=== PATIENT | male | born 1945 | race Caucasian/White ===

== ENCOUNTER → 2016-09-03 | Day surgery (SDC) | payer OTHER ==
[~2016-09-03] MED LIST: ACETAMINOPHEN 1000 MG/100 ML VIAL IV ONE; ATEN50TA PO; ATOR10TA15 PO; AUTOKIT7; BUPIVACAINE/EPINEPHRINE 0.25% 50 ML VIAL ONE; LACTATED RINGER'S 1000 ML INJ 1,000 ML ONE; LIDOCAINE 1%/EPINEPHrine 1:100,000 SOLN 20 ML VIAL ONE; LISI10TA3 PO; LOTR15T TOPICAL; LUMBAR BACK BRA1 MIS; MIDAZOLAM HCL 2 MG/2 ML VIAL ONE; NAPR500T PO; ONDANSETRON HCL 4 MG/2 ML VIAL IV PUSH ONE; PROPOFOL 100 MG/10 ML INJ IV ONE; PROT40TA PO; TAMS5CAP PO; TYLE325T PO; ceFAZolin INJ 1,000 MG VIAL ONE
--- NOTE | 2016-09-03 17:04 | TN ---
cc: STAN WHITE M.D., ANN A. ARNP DATE OF SURGERY: 09/03/2016 PREOPERATIVE DIAGNOSIS Right inguinal hernia. POSTOPERATIVE DIAGNOSIS Right inguinal hernia. PROCEDURE Repair of right inguinal hernia with mesh. ANESTHESIA TIVA. SURGEON Dr. White. ASST. Mrs. Monica Leyva MIKEL The FOURTH MATE was present from beginning to the end of the case assisting in all portions of the procedure. It was necessary to have this individual in the room to assist in the above surgical procedure. The surgical procedure was assisted by the FOURTH MATE. The FOURTH MATE presence was necessary throughout the case for appropriate retraction, dissection, visualization, and resection of the important anatomical structures during the surgical procedure. The FOURTH MATE was assisting throughout the entirety of the operation. The skill set of the FOURTH MATE is medically and surgically necessary to safely complete the surgical procedure. During the surgical case, the operating room surgical appliances salesperson was working instrument table and passing instruments to the attending surgeon and FOURTH MATE. The FOURTH MATE was directly assisting the operating surgeon and involved in the technical aspects of the surgical case. INDICATION This is a pleasant 71-year-old gentleman who had a left inguinal hernia repair about a month ago he then developed a right inguinal hernia, plans were made for above. PROCEDURE The patient was taken to the operating room and placed in supine position. After anesthesia, his right groin was prepped with Betadine, a time-out was done. He is given preoperative antibiotics. We make an oblique incision overlying the internal and external ring, dissect down through Omaira's fascia identifying the external oblique aponeurosis which is incised. The cord structures then surrounded with a [place] drain. The hernia sac is away from the cord structures, reduced. He had a moderate-size hernia sac, able to separate it away from the cord structures and open up the hernia sac, reduce all contents and twist it upon itself and ligate it with a Vicryl suture and amputate. The piece of polypropylene mesh secured to the pubic tubercle, Kaveh's ligament, iliopubic tract out laterally and the conjoined tendon medial. The internal ring is then reconstructed using the mesh by overlapping the tails and securing to the internal oblique aponeurosis. He does appear to have somewhat of a fatty cord, no lipoma is noted. After the mesh was secured, we then enclose the external oblique aponeurosis with 2-0 Vicryl, Omaira's with 2-0 Vicryl and the skin with 4-0 Vicryl. Steri-Strips applied. Sterile bandage applied. The patient tolerated the procedure well and had no immediate postop complication. MD ALEKSANDRA Terrazas/BJMeme /2:51 PM /4:30 PM MTDD
== END | disposition home or self-care (01) ==
LOC: ESDC 11:56
PROVIDERS: ATTEND Surgery
DX: K40.90 Unilateral inguinal hernia, without obstruction or gangrene, not specified as recurrent (principal)
CPT/HCPCS: 00830; 49505; C1781; J0131; J0690; J2250; J2405; J3010; J7120

== ENCOUNTER 2016-11-19 08:34 | Observation (INO) | payer OTHER ==
--- NOTE | 2016-11-18 18:40 | MH ---
cc: ROYER BARRY DATE OF ADMISSION 11/19/2016 Date of admission 11/18/2016 ADMISSION DIAGNOSIS Cervical spinal stenosis. HISTORY This patient is a 71-year-old white male who initially was seen by the undersigned on 30 September 2016. The patient had significant issues with his low back. Full evaluation showed evidence of significant cervical spinal stenosis and cervical myelopathy. He present with a gait disturbance. The patient noted that he had chronic low back pain for 40 years related to an old worker's compensation injury. He did well and was treated for his low back with injections, etc. The patient was seen in Dr. Soler's office and told he might need neck surgery. He had previous ACDF of the cervical spine in [place] in 2002. I saw him, evaluated him and found that he had evidence of significant cervical spinal stenosis at the C4-5 at C5-6 levels. He presents now for surgical treatment. PAST MEDICAL HISTORY, SOCIAL HISTORY AND FAMILY HISTORY System see attached notes. REVIEW OF SYSTEMS See attached notes. PHYSICAL EXAMINATION GENERAL: A 71-year-old white male, 6 feet 185 pounds BMI 24.8. Blood pressure 132/80. HEENT: Normocephalic, atraumatic. Pupils equal, round, reactive to light and accommodation. Extraocular motions intact. NECK: Supple. CHEST: Clear. HEART: Regular rate rhythm. ABDOMEN: Soft, nontender, normoactive bowel sounds. MUSCULOSKELETAL: Examination cervical motion is restricted. Pain with range of motion, positive Spurling's maneuver. Motor examination see attached notes. IMPRESSION 1. Cervical spinal stenosis. 2. Cervical myelopathy. 3. Cervical radiculopathy. PLAN Anterior cervical diskectomy decompression, bilateral foraminotomies C4-5 and C5-6, interbody cage, anterior plate, iliac crest bone graft. CONSENT The risks of surgery including infection, bleeding, loss of motion, continued pain, need for further surgery, neurologic and vascular injury. The patient understands these issues and wishes to press forward with surgery as outlined above. The patient has had previous cervical spine surgery. He has had an ENT evaluation which is negative for vocal cord dysfunction. The patient's surgical incision could be either right or left side depending on decisions at that time with surgery. Royer MD NGOZI Day/KK /6:25 PM /6:29 PM
[~2016-11-19] VITALS: Ht 175.3 cm; Wt 85.1 kg
[~2016-11-19 08:34] MED LIST changes: -ACETAMINOPHEN 1000 MG/100 ML VIAL IV ONE; -AUTOKIT7; +GENTAMICIN SULFATE 80 MG/2 ML VIAL ONE; -LACTATED RINGER'S 1000 ML INJ 1,000 ML ONE; -LIDOCAINE 1%/EPINEPHrine 1:100,000 SOLN 20 ML VIAL ONE; -LUMBAR BACK BRA1 MIS; -MIDAZOLAM HCL 2 MG/2 ML VIAL ONE; -ONDANSETRON HCL 4 MG/2 ML VIAL IV PUSH ONE; -PROPOFOL 100 MG/10 ML INJ IV ONE; +WARF-23 PO; +WARF-60 PO; +ceFAZolin 2 GM PREMIX 50 ML ONE; -ceFAZolin INJ 1,000 MG VIAL ONE
[2016-11-19] MEDS ORDERED: CHLORHEXIDINE GLUCONATE 2 % 1 PACK (2 CLOTHS) TOPICAL PRN (09:15)
[2016-11-19] MEDS ORDERED: SODIUM CHLORID 0.9% 500 ML IV PRN (09:15)
[2016-11-19] MEDS ORDERED: INSULIN HUMAN REGULAR 1,000 UNITS/10 ML VIAL SQ PRN (09:15)
[2016-11-19] MEDS ORDERED: METOPROLOL TARTRATE 25 MG TAB PO PRN (09:15)
[2016-11-19] MEDS ORDERED: POVIDONE IODINE 5% (ANTISEPSIS KIT) 4 APPLICATIONS EACH NARE PRN (09:15)
[2016-11-19] MEDS ORDERED: LACTATED RINGER'S 1000 ML IV PRN (09:15)
[2016-11-19 09:30] VITALS: BP 131/87; PULSE 64; RESP 20; TEMP 98; O2SAT 93
[2016-11-19] MEDS ORDERED: ceFAZolin 2 GM PREMIX 50 ML IV SCH (09:30)
[2016-11-19] MEDS ORDERED: POVIDONE IODINE 7.5% SCRUB 118 ML BOTTLE TOPICAL SCH (09:30)
[2016-11-19] MEDS ORDERED: VANCOMYCIN 1000 MG/NS 250 ML (for <70 kg) IV SCH ×2 (09:30)
[2016-11-19] MEDS ORDERED: ATEN50TA PO (09:45)
[2016-11-19] MEDS ORDERED: fentaNYL CITRATE 250 MCG/5 ML AMP ONE ×2 (10:27→10:28)
[2016-11-19] MEDS ORDERED: ACETAMINOPHEN 1000 MG/100 ML VIAL IV ONE (10:27)
[2016-11-19] MEDS ORDERED: HYDROmorphone HCL PF 2 MG/ML VIAL ONE (10:27)
[2016-11-19] MEDS ORDERED: ceFAZolin INJ 1,000 MG VIAL IV ONE (11:36)
[2016-11-19] MEDS ORDERED: THROMBIN (TOPICAL) 5,000 UNIT VIAL ONE (12:00)
[2016-11-19] MEDS ORDERED: PROPOFOL 200 MG/20 ML AMP IV ONE (12:00)
[2016-11-19] MEDS ORDERED: LACTATED RINGER'S 1000 ML INJ 1,000 ML IV ONE (12:00)
[2016-11-19] MEDS ORDERED: PHENYLEPH/NS 1000 MCG/10 ML SYR IV ONE (12:00)
[2016-11-19] MEDS ORDERED: ePHEDrine/NS 25 MG/5 ML SYR IV ONE (12:00)
[2016-11-19] MEDS ORDERED: PHENYLEPHRINE HCL 10 MG/ML VIAL IV ONE (12:00)
--- NOTE | 2016-11-19 14:24 | PD.OP ---
cc: Ryland Camacho MD; Uvaldo Camacho MD Operative Report Date of Surgery: Nov 19, 2016 Preoperative Diagnosis: Osteophyte disc complex, C45. Ossification posterior longitudinal ligament. Osteophyte disc complex, C5 6. Cervical myelopathy root Cervical radiculopathy. Previous surgical fusion, C3 4, remote Postoperative Diagnosis: Same Procedure: Anterior cervical discectomy decompression with bilateral foraminotomies, C4 5. Anterior cervical discectomy decompression and bilateral foraminotomies, C5 6. Left anterior iliac crest bone graft Anesthesia: Gen. Surgeon: Uvaldo Camacho Speech Language Pathologist Prn(s): NELSON Santoro Operation and Findings: EBL: 100 cc INDICATIONS: Patient is a 71-year-old white male with a remote history of a fusion at C3 4 who did well. The patient having progressive changes consistent with a cervical myelopathy. He also has a separate low back condition with a lumbar radiculopathy. He presents for anterior cervical discectomy decompression and fusion. This likely will be a staged procedure to a lumbar decompression in the future. NOTE: Archana Santoro PA-C was present for the entire surgical procedure as my captain's assistant. In my medical opinion her skill and care was necessary for proper management of this patient PROCEDURE: The patient was brought to the operating room and anesthetized in the supine position. This patient was positioned supine on the radiolucent table. All pressure points were protected in the anterior cervical spine and iliac crest was scrubbed with alcohol followed by Hibiclens followed by ChloraPrep. A timeout was done and antibiotics were given within 1 hour time window. Lateral radiographic images were used identifying the proper level. A right anterior incision was made in line with skin creases. The platysma was opened in line with the incision. Deep dissection continued in the interval between the carotid sheath and the esophagus. The longus-coli muscles were lifted on both sides and retractors were positioned allowing good exposure. Lateral radiographic images were used to identify the proper level. [place] style interosseous pins were placed at C4 and 5 allowing exposure to that level. The microscope was rolled into the field. A total discectomy was accomplished and posterior osteophytes were removed. The posterior longitudinal ligament and annulus was taken down. Bilateral foraminotomies were accomplished. The endplates were squared up anticipating later bone grafting. A blunt probe could be placed out each foramen without evidence of nerve root compromise. The C4 pin was placed down to C6. An anterior exposure was accomplished. We performed a total discectomy with excision of the posterior annulus and posterior longitudinal ligament. Bilateral foraminotomies were accomplished. Osteophytes were removed. The endplates were squared up anticipating later bone grafting. A blunt probe could be placed out each foramen without evidence of nerve root compromise. The left iliac crest was approached. A small stab incision was made allowing percutaneous access to the anterior iliac crest. Multiple cores of cancellous bone were harvested and taken to the back table to be used for later bone grafting. The wound was irrigated anesthetized and closed with 4-0 Vicryl followed by Dermabond. The case was turned over to Dr. Ryland Camacho for fusion and instrumentation per his dictation. FINDINGS: There was evidence of significant ossification of the posterior longitudinal ligament especially at the C5-C6 level. A significant stenosis at both levels was noted. The decompression was very satisfactory. There was no comp location I could appreciate. A blunt probe could placed out both foramens at C4 5 and C5 6 without evidence of significant residual foraminal stenosis. NOTE: This surgery was performed in 2 parts. The first part was the neurosurgical decompression performed under the variable power stereo microscope by the undersigned in addition to the bone graft. The second portion of the surgery will be performed by the orthopedic spine component by co -surgeon, Dr. Ryland Camacho for the anterior fusion with interbody cage and anterior plate. The skill of 2 surgeons was necessary to perform distinct separate procedural services as dictated above and dictated in the following operative note by Dr. Ryland Camacho. Uvaldo Camacho MD Nov 19, 2016 14:24
[2016-11-19] MEDS ORDERED: HYDR-3580 PO (14:27)
[2016-11-19] MEDS ORDERED: ACETAMINOPHEN/HYDROcodone 325 MG/7.5 MG TAB PO PRN ×2 (14:30)
[2016-11-19] MEDS ORDERED: Post-op Orders (for Pharmacy) MISC XX ONE (14:30)
[2016-11-19] MEDS ORDERED: BISACODYL 10 MG SUPP RECTAL PRN (14:30)
[2016-11-19] MEDS ORDERED: ONDANSETRON HCL 4 MG/2 ML VIAL IV PRN (14:30)
[2016-11-19] MEDS ORDERED: MORPHINE SULFATE 4 MG/ML INJ IV PUSH PRN (14:30)
[2016-11-19] MEDS: LACTATED RINGER'S 1000 ML INJ 1,000 ML IV SCH (15:00)
[2016-11-19] MEDS ORDERED: SODIUM CHLORIDE 0.9% FLUSH 10 ML FLUSH IV FLUSH PRN (15:15)
--- NOTE | 2016-11-19 16:00 | HHI.PR ---
Immediate Post Op Note Procedure Date: Nov 19, 2016 Pre Op Diagnosis: C4-5,C5-6 ODC,SS,SCC;CM;DDD,OA;S/P C3-4 ACDF 2002 Post Op Diagnosis: Same Surgeon: Ryland Camacho MD Manager Cleaning(s): Anita Correia PA-C Procedure: C4-5,C5-6 AIF,ACC,ASI Complications: None Estimated blood loss: 200cc for entire case Anesthesia: General Drains: TABITHA Patient to: PACU Patient Condition: Good Ryland Camacho MD Nov 19, 2016 16:00
[2016-11-19] MEDS ORDERED: *RESP: ALBUTEROL 2.5 MG/3 ML NEB (PRN) PERIprocedural Use ONLY NEB ONE (16:11)
--- NOTE | 2016-11-19 16:44 | RADRPT ---
EXAM DATE/TIME: 11/19/2016 12:08 [place] COMPARISON: No previous studies available for comparison. INDICATIONS : Hardware placement cervical spine MEDICAL HISTORY : None. SURGICAL HISTORY : None. ENCOUNTER: Initial ACUITY: 1 day PAIN SCORE: Non-responsive. LOCATION: Cervical spine FINDINGS: 3 spot fluoroscopic images were obtained in the operating room during a procedure and demonstrates an terior cervical discectomy and fusion at the C4-C6 levels. There is osseous fusion between C3 and C4. CONCLUSION: Images document hardware anteriorly at C4-C6. Jose Cotter MD on November 19, 2016 at 16:42 Board Certified Radiologist. This report was verified electronically.
[2016-11-19] MEDS ORDERED: HYDROmorphone HCL PF 1 MG/ML VIAL IV PUSH PRN (16:45)
[2016-11-19] MEDS ORDERED: DO NOT ADM ANY ANTICOAGULANT DRUGS PRN (17:00)
[2016-11-19 18:49] VITALS: BP 127/73; PULSE 79; RESP 18; TEMP 96.6; O2SAT 92
--- NOTE | 2016-11-19 19:39 | MP ---
cc: JOHNNY BARRY MANDEEP MD GAFFKA, ANN A. DATE OF SURGERY 11/19/16 PREOPERATIVE DIAGNOSIS 1. C4-5, C5-6 osteophyte disk complex, spinal stenosis, spinal cord compression, spinal cord edema. 2. Cervical myelopathy, bilateral upper extremity weakness, gait disturbance. 3. Cervical spine degenerative disease osteoarthritis. 4. Status post C3-4 anterior cervical diskectomy fusion 2002. POSTOPERATIVE DIAGNOSIS 1. C4-5, C5-6 osteophyte disk complex, spinal stenosis, spinal cord compression, spinal cord edema. 2. Cervical myelopathy, bilateral upper extremity weakness, gait disturbance. 3. Cervical spine degenerative disease osteoarthritis. 4. Status post C3-4 anterior cervical diskectomy fusion 2002. PROCEDURE C4-5, C5-6 interbody fusion, SpineNet ACC anterior cervical cage, SpineNet Rauscher anterior spinal instrumentation. SURGEON Mega Barry MD ASSESSMENT Anita Correia PA-C SPECIMEN None. ESTIMATED BLOOD LOSS 200 cc for entire case. COMPLICATIONS None. ANESTHESIA General. DRAIN One. CONDITION Stable. PLAN OF ACTIVITY As per orders. PROCEDURE Dr. Uvaldo Barry and myself were co-surgeons. Dr. Uvaldo Barry performed the neuro decompressive portion of the surgery and then I performed the orthopedic fusion and stabilization surgery. My assistant media buyer Anita Correia PA-C, was present for my portion of the surgical case. She was medically necessary for the entire case because of the complexity of the case and to facilitate the performance of the procedure. The AIDS COUNSELOR at the back table was not a skilled set for this case to manipulate the instruments e.g., the multiple different types of soft tissue retractors, trial implants, permanent implants. The patient brought to the operating room, had satisfactory anesthesia by department part of anesthesia. Dr. Uvaldo Barry performed a left anterior cervical spine exposure to the cervical spine. Using operative microscope performed a C4-5, C5-6 anterior cervical diskectomy, anterior decompression and foraminotomies. Also performed a left anterior iliac crest bone grafting. This is well-described in his operative note. The endplates at C5-6 were prepared for fusion. The hyaline cartilage endplate was removed with angled curettes and burs. A 6 10 x 12 ACC cage placed in the interspace. The patient had very long osteophytes anteriorly at this stage. Under fluoroscopic guidance the anterior iliac crest bone grafting was used for interbody fusion. The endplates at C4-5 were prepared for fusion. Hyaline cartilage endplates removed with angled curettes and burs. A 7 10 x 12 ACC cage placed in the interspace. Anterior iliac crest bone graft under fluoroscopic guidance was used for interbody fusion. Anterior osteophytes were removed and scar tissue was also removed from the patient's previous surgery. Using multiple types of rongeurs and burs. A 46 mm SpineNet Rauscher plate was contoured appropriate dimensions, anterior and lateral, fluoroscopy was used for appropriate positioning and was found intact with the Pentax. Two screws were used in the vertebral body of C4, C5 and C6. Each screws were 16 mm in length, 4 mm in diameter and fixed angle screws. These screws were drilled, the screws were inserted. Each screw head appropriately locked to the plate. The wound was irrigated with copious amounts of saline. The wound itself was dry. AP and lateral fluoroscopy of the cervical spine confirmed satisfactory position bone graft at C4-5 and C5-6. Satisfactory position of the ACC cages at C4-5 and C5-6 and satisfactory position of the SpineNet Rauscher anterior spinal instrumentation from C4-C6. The wound was irrigated with copious amounts of sterile saline solution again. The wound itself was dry. The wound was closed over 10-[place] Mario drain. Wound was closed in multiple layers using 3-0 Vicryl suture. Skin approximated with running subcuticular 4-0 Vicryl. Dermabond placed over the skin incisions. Sterile dressings were applied. The patient placed in [place] cervical orthosis. The patient tolerated the procedure well and arrived to the recovery room in stable and satisfactory condition. MD ASHLEY Victor/DESMOND /3:46 PM /7:02 PM ANGE
[2016-11-19] MEDS ORDERED: WARFARIN SOD 5 MG TAB PO ONE (20:00)
[2016-11-19] MEDS ORDERED: TAMSULOSIN HCL 0.4 MG CAP PO SCH (21:00)
[2016-11-19] MEDS ORDERED: ATORVASTATIN 10 MG TAB PO SCH (21:00)
[2016-11-19] MEDS ORDERED: ATENOLOL 50 MG TAB PO SCH (21:00)
[2016-11-19] MEDS: SODIUM CHLORIDE 0.9% FLUSH 10 ML FLUSH IV FLUSH SCH (21:33)
[2016-11-19] MEDS ORDERED: LISINOPRIL 10 MG TAB PO SCH (22:00)
[2016-11-19 23:25] VITALS: BP 102/70; PULSE 74; RESP 18; TEMP 96.8; O2SAT 92
[2016-11-20 03:25] VITALS: BP 114/73; PULSE 66; RESP 17; TEMP 96.5; O2SAT 95
[2016-11-20] MEDS: LACTATED RINGER'S 1000 ML INJ 1,000 ML IV SCH (03:30)
[2016-11-20 07:48] VITALS: BP 108/71; PULSE 64; RESP 17; TEMP 96.3; O2SAT 94
--- NOTE | 2016-11-20 07:50 | HHI.DCPOC ---
Discharge Care Plan Diagnosis: (1) Cervical spinal stenosis (2) Cervical myelopathy with cervical radiculopathy Your Health Problems Are: Incision/Drains Inflammation Goals to Promote Your Health * To prevent worsening of your condition and complications * To maintain your health at the optimal level Directions to Meet Your Goals Take your medications as prescribed Follow your dietary instruction Follow activity as directed Keep your appointments as scheduled Take your immunizations and boosters as scheduled If your symptoms worsen call your PCP, if no PCP go to Urgent Care Center or Emergency Room Smoking is Dangerous to Your Health. Avoid second hand smoke Call the 24-hour hour crisis hotline for domestic abuse at Mirna Chacko Nov 20, 2016 07:50
--- NOTE | 2016-11-20 07:54 | HHI.DS ---
Discharge Summary Admission Date Nov 19, 2016 at 19:09 Discharge Date: Nov 20, 2016 Admitting Diagnosis see below Diagnosis: (1) Cervical spinal stenosis Diagnosis: Principal (2) Cervical myelopathy with cervical radiculopathy Diagnosis: Principal Procedures Anterior cervical decompression and fusion C45, C56, bone graft. Brief History This is a 71 year old male patient with a previous history of chronic back and joint pain. He had a previous cervical surgery in [place] in 2002. Over the course of the last 1-2 years he began experiencing increasing leg pain. In April 2016 he began experiencing what he sescribes as seizure-like episodes and sought out treatment with neurology. Imaging studies of the cervical spine showed advanced degenerative changes C45 and C56 with myelopathic changes in addition to changes seen above at previous injury site, C34. Surgical treatment was recommended in the form of ACDF C45 and C56. The patient elected to move forward. He presents for the above procedure. Hospital Course Surgical treatment was preformed on the day of admission without complication. He recovered well in pacu and was transferred to the orthopaedic floor. He was found to have urinary retention so a brandon catheter was placed. It was eventually removed and he was able to urinate. Pain was controlled with IV and oral medications. He was compliant with his cervical collar. His cervical drain was discontinued and dressing was changed. 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 He was also encouraged to pursue a high fiber soft diet for 3 days and to continue his flomax. Pt Condition on Discharge: Stable Discharge Disposition: Discharge Home Discharge Instructions Diet Instructions: As Tolerated, No Restrictions, High Fiber Diet Activities You Can Perform: Weight Bearing as Mauro, See Additionl Instruction Activities to Avoid: Strenuous Activity Additional Activity Instruc.: Cervical brace full-time New Medications: Hydrocodone-Acetaminophen (Hydrocodone-Acetaminophen) 7.5-325 mg Tab 1 TAB PO Q4H PRN PAIN SCALE 1 TO 5 #50 TAB Continued Medications: Acetaminophen (Tylenol) 325 Mg Tab 325 MG PO Q4H PRN pain Ref 0 TAB Atenolol (Atenolol) 50 Mg Tab 50 MG PO HS Blood Pressure Management #30 Ref 0 TAB Atorvastatin (Atorvastatin) 10 Mg Tab 10 MG PO HS Cholesterol Management #30 Ref 0 TAB Betamethasone-Clotrimazole Topical (Lotrisone Topical) 1-0.05% Cream 1 APPLIC TOPICAL BID PRN RASH #15 Ref 0 GM Lisinopril (Lisinopril) 10 Mg Tab 10 MG PO DAILY #30 Ref 5 TAB Pantoprazole (Protonix) 40 Mg Tab 40 MG PO DAILY Reflux #90 Ref 3 TAB Tamsulosin (Flomax) 0.4 Mg Cap 0.8 MG PO HS Manage Prostate Problems #180 Ref 1 CAP Warfarin (Warfarin) 5 Mg Tab 5 MG PO EVERY OTHER DAY Blood Clot Prevention #30 Ref 0 TAB Warfarin (Warfarin) 6 Mg Tab 6 MG PO EVERY OTHER DAY Blood Clot Prevention #30 Ref 0 TAB Discontinued Medications: Naproxen (Naproxen) 500 Mg Tab 500 MG PO BID back pain #60 Ref 0 TAB Mirna Chacko Nov 20, 2016 07:54
--- NOTE | 2016-11-20 07:57 | PD.ORT.PN ---
Subjective Subjective Remarks Mild to moderate neck pain. No new arm pain. His states he accidentally pulled his cervical drain out last night. No other concerns. Very little hip pain. No new CP or SOB. Questions about surgery. Objective Vitals Vital Signs Date Time Temp Pulse Resp B/P Pulse Ox O2 Delivery O2 Flow Rate FiO2 11/20/16 07:48 96.3 64 17 108/71 94 11/20/16 03:25 96.5 66 17 114/73 95 11/19/16 23:25 96.8 74 18 102/70 92 11/19/16 18:49 96.6 79 18 127/73 92 11/19/16 18:30 81 14 105/65 95 Nasal Cannula 3 11/19/16 18:00 81 16 112/75 93 Nasal Cannula 3 11/19/16 17:30 80 17 113/74 94 Nasal Cannula 4 11/19/16 17:00 85 19 122/85 92 Nasal Cannula 4 11/19/16 16:45 86 18 109/69 92 Nasal Cannula 4 11/19/16 16:30 80 15 112/69 93 Nasal Cannula 4 11/19/16 16:15 80 14 109/72 94 Simple Mask 6 11/19/16 16:06 97.5 81 18 113/67 96 Simple Mask 6 11/19/16 09:30 98.0 64 20 131/87 93 I/O 11/19/16 11/19/16 11/19/16 11/20/16 11/20/16 11/20/16 06:59 14:59 22:59 06:59 14:59 22:59 Intake Total 1798 ml 1260 ml Output Total 1260 ml 250 ml Balance 538 ml 1010 ml Intake Oral 240 ml 640 ml IV Total 358 ml 620 ml Other 1200 ml Output Urine Total 1000 ml 250 ml Drainage Total 60 ml Estimated Blood Loss 200 ml # Bowel Movements 0 0 Procedures Anterior cervical decompression and fusion C45, C56, bone graft. Objective Remarks Sitting up in bed, at bedside No acute distress In cervical collar C/S Dressing intact/clean, drain removed, minimal swelling, no erythema +brachioradialis strength 5/5, +sens, neg homans bilat Assessment & Plan Ortho Post Op Day #: 1 Problem List: (1) Cervical spinal stenosis (2) Cervical myelopathy with cervical radiculopathy Assessment and Plan pod#1 s/p ACDF C45, C56 Ortho stable. Ok to d/c home today. D/C brandon cath. Continue flomax as he was on preop Dry dressing changes daily. 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 PO pain meds Ambulate w gait aid as needed for balance recognizing he has lumbar spinal stenosis. F/U in 2 weeks as scheduled. Mirna Chacko Nov 20, 2016 07:57
[2016-11-20] MEDS ORDERED: DOCUSATE SODIUM 100 MG CAP PO SCH (09:00)
[2016-11-20] MEDS ORDERED: PANTOPRAZOLE SOD 40 MG DELAYED RELEASE TAB PO SCH (09:00)
[2016-11-20] MEDS ORDERED: LISINOPRIL 10 MG TAB PO SCH ×2 (09:00→21:00)
[2016-11-20] MEDS ORDERED: MULTIVITAMINS/MINERALS THERAPEUTIC TAB PO SCH (09:00)
[2016-11-20] MEDS: SODIUM CHLORIDE 0.9% FLUSH 10 ML FLUSH IV FLUSH SCH (10:04)
[2016-11-20 11:59] VITALS: BP 96/67; PULSE 72; RESP 17; TEMP 97.5; O2SAT 94
[2016-11-20 14:05] VITALS: O2SAT 93
== END 2016-11-20 15:44 | disposition home or self-care (01) ==
LOC: HSDC 08:34 → EDSTATUS 09:00 → HSDI 14:21 → HSDC 19:07 → N06A 19:09
PROVIDERS: ADMIT Orthopaedic Surgery Orthopaedic Surgery of the Spine; ATTEND Orthopaedic Surgery Orthopaedic Surgery of the Spine
PROC: 0RG20A0 Fusion of 2 or more Cervical Vertebral Joints with Interbody Fusion Device, Anterior Approach, Anterior Column, Open Approach (ICD-10-PCS; 2016-11-19)
PROC: 0RG2070 Fusion of 2 or more Cervical Vertebral Joints with Autologous Tissue Substitute, Anterior Approach, Anterior Column, Open Approach (ICD-10-PCS; 2016-11-19)
PROC: 0QH304Z Insertion of Internal Fixation Device into Left Pelvic Bone, Open Approach (ICD-10-PCS; 2016-11-19)
PROC: 0RT30ZZ Resection of Cervical Vertebral Disc, Open Approach (ICD-10-PCS; principal; 2016-11-19 11:05)
DX: M50.121 Cervical disc disorder at C4-C5 level with radiculopathy (principal); M25.78 Osteophyte, vertebrae; M48.02 Spinal stenosis, cervical region; M47.892 Other spondylosis, cervical region; G95.19 Other vascular myelopathies; R26.9 Unspecified abnormalities of gait and mobility; I48.91 Unspecified atrial fibrillation; Z79.01 Long term (current) use of anticoagulants; K21.9 Gastro-esophageal reflux disease without esophagitis; I10 Essential (primary) hypertension; G62.9 Polyneuropathy, unspecified; E78.5 Hyperlipidemia, unspecified; Z87.891 Personal history of nicotine dependence; Z86.73 Personal history of transient ischemic attack (TIA), and cerebral infarction without residual deficits; Z98.1 Arthrodesis status; Z79.899 Other long term (current) drug therapy
CPT/HCPCS: 00670; 20938; 22551; 22552; 72040; 76000; 94150; 94640; 96365; 96376; C1713; G0378; J0131; J0690; J1170; J1580; J2370; J3010; J3370; J7050; J7120; J7613; L0150

== ENCOUNTER 2017-05-25 07:30 | Inpatient (IN) | payer OTHER, MEDICARE ==
[~2017-05-25] VITALS: Ht 177.8 cm; Wt 91.5 kg
[~2017-05-25 07:30] MED LIST changes: -BUPIVACAINE/EPINEPHRINE 0.25% 50 ML VIAL ONE; -GENTAMICIN SULFATE 80 MG/2 ML VIAL ONE; -NAPR500T PO; -TAMS5CAP PO; -ceFAZolin 2 GM PREMIX 50 ML ONE
[2017-05-25] MEDS ORDERED: POVIDONE IODINE 5% (ANTISEPSIS KIT) 4 APPLICATIONS EACH NARE PRN (09:00)
[2017-05-25] MEDS ORDERED: CHLORHEXIDINE GLUCONATE 2 % 1 PACK (2 CLOTHS) TOPICAL PRN (09:00)
[2017-05-25] MEDS ORDERED: METOPROLOL TARTRATE 25 MG TAB PO PRN (09:00)
[2017-05-25] MEDS ORDERED: SODIUM CHLORID 0.9% 500 ML IV PRN (09:00)
[2017-05-25] MEDS ORDERED: LACTATED RINGER'S 1000 ML IV PRN (09:00)
[2017-05-25] MEDS ORDERED: CHLORHEXIDINE GLUCONATE 4% SOLN 120 ML BTL TOPICAL SCH (09:15)
[2017-05-25] MEDS ORDERED: ceFAZolin 2 GM PREMIX 50 ML IV SCH (09:15)
[2017-05-25] MEDS ORDERED: VANCOMYCIN 1000 MG/NS 250 ML (for <70 kg) IV SCH ×2 (09:15)
[2017-05-25 09:48] LABS: PROTHROMBIN TIME - PATIENT 10.4 SEC (9.8-11.6)
[2017-05-25] MEDS ORDERED: PROPOFOL 200 MG/20 ML AMP IV ONE (12:00)
[2017-05-25] MEDS ORDERED: ROCURONIUM INJ 50 MG/5 ML SYRINGE IV PUSH ONE (12:00)
[2017-05-25] MEDS ORDERED: ceFAZolin INJ 1,000 MG VIAL IV ONE ×2 (12:00→17:40)
[2017-05-25] MEDS ORDERED: PHENYLEPH/NS 1000 MCG/10 ML SYR IV ONE (12:00)
[2017-05-25] MEDS ORDERED: SODIUM CHLOR 0.9% 250 ML INJ 250 ML IV ONE (12:00)
[2017-05-25] MEDS ORDERED: LIDOCAINE HCL 1% PF 5 ML SYRINGE OTHER ONE (12:00)
[2017-05-25] MEDS ORDERED: STERILE WATER FOR INJECTION 20 ML VIAL IV ONE (12:00)
[2017-05-25] MEDS ORDERED: PHENYLEPHRINE HCL 10 MG/ML VIAL IV ONE (12:00)
[2017-05-25] MEDS ORDERED: LACTATED RINGER'S 1000 ML INJ 3,000 ML IV ONE (12:00)
[2017-05-25] MEDS ORDERED: ePHEDrine/NS 25 MG/5 ML SYRINGE IV ONE (12:00)
[2017-05-25] MEDS ORDERED: GLYCOPYRROLATE 1 MG/5 ML SYRINGE IV PUSH ONE (12:00)
[2017-05-25] MEDS ORDERED: DEXAMETHASONE SOD PHOS 4 MG/ML VIAL IV ONE (12:00)
[2017-05-25] MEDS ORDERED: GENTAMICIN SULFATE 80 MG/2 ML VIAL ONE (12:07)
[2017-05-25] MEDS ORDERED: PHENYLEPHRINE HCL 10 MG/ML VIAL ONE (15:55)
[2017-05-25] MEDS ORDERED: VASOPRESSIN 20 UNITS/ML VIAL ONE (16:37)
--- NOTE | 2017-05-25 16:54 | MB ---
cc: LANDON MASCORRO MD DATE OF CONSULTATION 05/25/2017 Intraoperative consultation REASON FOR CONSULTATION Difficult Paiz catheter placement. HISTORY OF PRESENT ILLNESS The patient is a 72-year-old male with a reported history of an enlarged prostate who presents today for back surgery by Dr. Camacho. After he was it had intubated intraoperatively several attempts were made by the nursing staff for Paiz catheter placement but were unsuccessful. Urology was consulted for catheter placement. Per the records he has no reported history of urological surgery but does have a reported history as mentioned above with enlarged prostate. Per the nurses he did mention prior to going to sleep that for the past several weeks he has had a strong urge to go and has just been dribbling in small amounts. REVIEW OF SYSTEMS Unobtainable due to the patient being intubated. PAST MEDICAL HISTORY Significant for: 1. Benign prostatic hypertrophy. 2. Bilateral inguinal hernia. 3. Cataracts. 4. Gastroesophageal reflux disease. 5. Back pain. 6. Atrial fibrillation. PAST SURGICAL HISTORY Includes: 1. Tonsillectomy. 2. Cervical surgery x2. 3. Esophageal dilatations. 4. Bilateral inguinal hernia repairs. 5. Cataract removal. 6. Dentures. SOCIAL HISTORY No evidence of smoking tobacco or illicit drugs. Does use caffeine. FAMILY HISTORY There is a history of diabetes, pancreatic cancer and a history of myocardial infarction in the father. MEDICATIONS Include: 1. Coumadin 5 mg every other day. 2. Zocor 2 mg nightly. 3. Atenolol 50 milligrams p.o. q.h.s. 4. Lisinopril 10 milligrams p.o. daily. 5. Protonix 40 milligrams p.o. daily. PHYSICAL EXAMINATION VITAL SIGNS: Temperature 98.5, pulse 60, respiratory rate 18, BP 130/86. GENERAL: He is intubated, sedated on the table. No apparent distress. HEENT: Head is normocephalic, atraumatic. NECK: Supple. Neck is midline. No JVD. EYES: No scleral icterus. LUNGS: Nonlabored respirations. No wheezes, rales or rhonchi. CARDIOVASCULAR: Regular rate and rhythm. No murmurs, rubs, or gallops. ABDOMEN: Soft and nontender. Nondistended. Positive bowel sounds. GENITOURINARY: His penis is circumcised. Testes are descending bilaterally. Normal size without mass. EXTREMITIES: Nontender. No clubbing, cyanosis, edema. SKIN: No visible ulcers or rashes. Mucous membranes are pink and moist. NEUROLOGIC: Cranial II-XII intact. LABORATORY DATA Labs show an INR 1.0. PT 10.4. IMAGING STUDIES None. ASSESSMENT AND PLAN The patient is a 72-year-old male with a reported history of BPH who is currently intubated for back surgery presents with inability to pass a Paiz catheter. The plan, I was able to successfully pass a 60 Prydeinig Coud catheter without difficulty. Initially a blood clot returned and then urine became dark yellow. Will send the sample for urine culture and sensitivity. Recommend continuing the Paiz catheter for now until further discussion is had about the severity of his urinary symptoms. Thank you for this consultation. MD COLT Carcamo/NANNETTE /3:45 PM /4:28 PM
[2017-05-25] MEDS ORDERED: DO NOT ADM ANY ANTICOAGULANT DRUGS PRN ×2 (19:10→19:57)
[2017-05-25] MEDS ORDERED: BISACODYL 10 MG SUPP RECTAL PRN (19:15)
[2017-05-25] MEDS ORDERED: SOD PHOSPHATE/SOD BIPHOSPHATE (ADULT) ENEMA 133ML PR PRN (19:15)
[2017-05-25] MEDS ORDERED: INFO FOR PHARMACY/READ COMMENT ONE (19:15)
[2017-05-25] MEDS ORDERED: NALOXONE HCL 0.4 MG/ML AMP IV PUSH PRN (19:15)
[2017-05-25] MEDS ORDERED: traMADol HCL 50 MG TAB PO PRN (19:15)
[2017-05-25] MEDS ORDERED: Post-op Orders (for Pharmacy) XX ONE (19:15)
[2017-05-25] MEDS ORDERED: MORPHINE SULFATE 8 MG/ML INJ IV PUSH PRN (19:15)
[2017-05-25] MEDS ORDERED: MORPHINE SULFATE 30 MG/30 ML PCA IV SCH (19:15)
[2017-05-25] MEDS ORDERED: ALUMINUM/MAGNESIUM/SIMETH 30 ML CUP PO PRN (19:15)
[2017-05-25] MEDS ORDERED: BETAMETHASONE/CLOTRIMAZOLE CREAM 15 GM TOPICAL PRN (19:15)
--- NOTE | 2017-05-25 19:30 | PD.OP ---
cc: Uvaldo Camacho MD Operative Report Date of Surgery: May 25, 2017 Preoperative Diagnosis: Lumbar spinal stenosis L2-3, L3 4, L4 5, L5-S1. Foraminal stenosis right, L5-S1. Herniated nucleus pulposis L2-3 central, left, L3 4 central. Right greater than left lumbosacral radiculopathy Postoperative Diagnosis: Same Procedure: Bilateral lumbar laminectomy L2-3. Bilateral lumbar laminectomy L3 4. Bilateral lumbar laminectomy L4 5. Lumbar laminectomy from the right L5-S1 with subtotal right L5-S1 facet resection posterior spinal fusion, lateral transverse process technique, L5-S1. Posterior lateral interbody fusion, L5-S1 root Placement of interbody cage, L5-S1. Posterior spinal segmental instrumentation Major bone grafting of the lumbar spine Anesthesia: Gen. Surgeon: Uvaldo Camacho Evaluator(s): NELSON Santoro Operation and Findings: EBL: 450 ml NOTE: Archana Santoro PA-C was present for the entire surgical procedure as my assistant office manager. In my medical opinion her skill and care was necessary for proper management of this patient INDICATIONS: This patient is a 72-year-old male with severe claudication. He is almost unable to ambulate because of bilateral leg weakness. He has severe radiating right leg pain. Investigative studies shows evidence of a high-grade stenosis L2-3 through L5-S1. There is evidence of disc herniation centrally into the right at L2-3 and L3 4. There is severe foraminal stenosis to the right at L5-S1. This may be from a sequestered disc herniation in the foramen. We anticipate a subtotal facet resection as a part of this treatment indicating substantial instability and need for a fusion across that level. INSTRUMENTATION: PROCEDURE: The patient brought to the operating room and anesthetized the supine position. The patient positioned prone on the Azar frame on the Berny table. All pressure points are protected. The back was scrubbed with alcohol followed by Hibiclens followed by ChloraPrep and draped sterilely and antibiotics were given within a routine time window. A timeout was done. Lateral radiographic images used to identify the proper level for the procedure. This was compared to preoperative studies. Skin markings were made anticipating surgical treatment. A midline incision was made. The lamina and facet joint was exposed extending from L2 to the sacrum. Deep retractors were positioned. Intraoperative fluoroscopy was used to confirm the levels of dissection. We started midline at the L4 5 level performing a bilateral laminectomy of L4 extending down to the upper one half of L5 and performing a bilateral lateral recess decompression. We found a severe high-grade right lateral recess stenosis. We extended up to the L3 4 level and again found a high-grade bilateral recess stenosis which was decompressed on both sides. It is worse on the left than on the right. We then extended up removing the lower two thirds of the L2 lamina and leaving the ligament between L1 and L2 posterior spinous process. We found a high-grade bilateral lateral recess stenosis. We checked carefully to the left at the L2-3 level finding a completely calcified disc herniation which was covered by and annulus. The decompression was felt to be very satisfactory in this region. We extended down to the L3 4 level also finding a completely calcified central disc herniation. We checked the decompression very carefully on both sides down to the L5-S1 level. We then performed a a right-sided laminectomy and a subtotal facet resection. We found a sequestered disc herniation into the foramen just above the pedicle and severely compressing the exiting right L5 nerve root. The nerve root was completely decompressed. A subtotal discectomy was accomplished at that level. All cartilaginous material was removed from the disc space. The endplates were curetted. The patient's autogenous bone was mixed with Nucel stem cells. This was injected into the disc space followed by placement of a Stax cage. This was deployed centrally and elevated that level up to 10 mm. The fit was excellent. The microscope had been used for all of the decompression. This was removed from the field. Using an open technique of biplanar fluoroscopy, the pedicles were found of L5 and S1. A blunt probe was placed down each pedicle. The screws appeared be in very good position. These were tightened to proper length rods and then tightened according to insulator cutter and former's recommendations. We then placed bone graft in the lateral gutters to the transverse process of L5 down to the sacral ala. The wound was irrigated multiple times with antibiotic irrigation. A deep drain brought through separate stab incision. The fascia was closed with interrupted #1 Vicryl suture. Vancomycin powder was used in the wound. Subcutaneous tissue was approximated with 2-0 Vicryl suture and skin with running intradermal 3-0 Vicryl followed by benzoin and Steri-Strips and a sterile dressing. The patient was awakened and taken to the recovery room in satisfactory condition FINDINGS: There was a severe multilevel spinal stenosis mostly involving lateral recess and centrally. The decompression was felt be very satisfactory. There was no complication that was appreciated. There was no leak as she was spinal fluid. It was no significant bleeding at the end of the case. Uvaldo Camacho MD May 25, 2017 19:30
[2017-05-25] MEDS ORDERED: VANCOMYCIN 500 MG VIAL ONE (20:00)
--- NOTE | 2017-05-25 20:00 | RADRPT ---
EXAM DATE/TIME: 05/25/2017 18:39 [facility] COMPARISON: No previous studies available for comparison. INDICATIONS : L2-S1 decompression, L5-S1 fusion. MEDICAL HISTORY : Hypertension. Gastroesophageal reflux disease. A-fib. SURGICAL HISTORY : Tonsillectomy. Fusion, cervical. ENCOUNTER: Initial ACUITY: 1 day PAIN SCORE: Non-responsive. LOCATION: Lumbar spine. FINDINGS: Status post lumbar spinal fusion at L5-S1. There is good alignment of the fusion. The hardware is joseph ssly intact. CONCLUSION: Good position and alignment on this postoperative study. Tavares Alonzo MD on May 25, 2017 at 19:58 Board Certified Radiologist. This report was verified electronically.
[2017-05-25] MEDS: LACTATED RINGER'S 1000 ML INJ 1,000 ML IV SCH (20:15)
[2017-05-25] MEDS ORDERED: ZOLPIDEM TARTRATE 5 MG TAB PO PRN (21:00)
[2017-05-25] MEDS: ATORVASTATIN 10 MG TAB PO SCH (21:00)
[2017-05-25] MEDS: ATENOLOL 50 MG TAB PO SCH (21:00)
[2017-05-25] MEDS ORDERED: SODIUM CHLORID 0.9% 500 ML INJ 500 ML IV SCH (21:45)
[2017-05-25] MEDS: PCA - TOTAL MG MORPHINE DELIVERED PER SHIFT SCH (22:00)
[2017-05-25 22:10] LABS: HEMATOCRIT 39.2 % (39.0-51.0); HEMOGLOBIN 13.2 GM/DL (13.0-17.0)
[2017-05-25] MEDS: ALBUMIN 25% INJ 50 ML IV SCH (22:38)
[2017-05-25] MEDS ORDERED: ALBUMIN 25% INJ 100 ML IV ONE (22:38)
[2017-05-25] MEDS: SODIUM CHLORID 0.9% 500 ML INJ 500 ML IV ONE (22:45)
[2017-05-25 23:49] VITALS: BP 112/70; PULSE 77; RESP 18; TEMP 96; O2SAT 97
[2017-05-26] MEDS: ALBUMIN 25% INJ 50 ML IV SCH (01:17)
[2017-05-26 03:30] VITALS: BP 99/66; PULSE 87; RESP 18; TEMP 96.7; O2SAT 98
[2017-05-26] MEDS: LACTATED RINGER'S 1000 ML INJ 1,000 ML IV SCH ×2 (03:58→21:42)
[2017-05-26] MEDS: PCA - TOTAL MG MORPHINE DELIVERED PER SHIFT SCH ×3 (06:00→21:42)
[2017-05-26 08:00] VITALS: BP 104/60; PULSE 84; RESP 17; TEMP 97.3; O2SAT 95
[2017-05-26] MEDS ORDERED: LISINOPRIL 10 MG TAB PO SCH (09:00)
[2017-05-26] MEDS: PANTOPRAZOLE SOD 40 MG DELAYED RELEASE TAB PO SCH (09:02)
[2017-05-26] MEDS: ONDANSETRON HCL 4 MG/2 ML VIAL IV PUSH PRN ×2 (10:13→21:36)
--- NOTE | 2017-05-26 10:53 | HHI.PR ---
Subjective Patient symptoms today Pt seen and examined. Pt had brandon placed yesterday by Dr. Burrell. Pt seen in the past by me in the office for BPH. Pt on Cardura 8mg QHS. Objective Vital Signs Vital Signs Date Time Temp Pulse Resp B/P (MAP) Pulse Ox O2 Delivery O2 Flow Rate FiO2 05/26/17 08:00 97.3 84 17 104/60 (75) 95 05/26/17 06:00 18 05/26/17 03:30 96.7 87 18 99/66 (77) 98 05/25/17 23:49 96.0 77 18 112/70 (84) 97 05/25/17 23:30 97.7 78 16 102/64 (77) 95 Nasal Cannula 2 Arterial Line 05/25/17 23:15 78 16 105/64 (78) 95 Nasal Cannula 2 Arterial Line 05/25/17 23:00 78 17 93/64 (74) 96 Nasal Cannula 2 Arterial Line 05/25/17 22:45 78 20 93/63 (73) 94 Nasal Cannula 2 Arterial Line 05/25/17 22:30 79 15 93/63 (73) 93 Nasal Cannula 4 Arterial Line 05/25/17 22:15 79 17 98/63 (75) 94 Nasal Cannula 4 Arterial Line 05/25/17 22:00 80 12 101/67 (78) 94 Nasal Cannula 4 05/25/17 21:45 80 18 99/61 (74) 95 Nasal Cannula 4 05/25/17 21:40 82 18 95/53 (67) 93 Nasal Cannula 4 05/25/17 21:35 81 15 87/60 (69) 96 Nasal Cannula 4 05/25/17 21:33 82 16 89/58 (68) 96 Nasal Cannula 4 05/25/17 21:30 81 19 87/62 (70) 92 Nasal Cannula 4 05/25/17 21:15 85 16 101/64 (76) 95 Nasal Cannula 4 05/25/17 21:00 87 17 101/63 (76) 94 Nasal Cannula 4 05/25/17 20:45 93 20 108/68 (81) 92 Nasal Cannula 4 97/62 (74) 05/25/17 20:30 96 21 114/70 (85) 92 Nasal Cannula 4 101/63 (76) 05/25/17 20:15 100 21 113/71 (85) 95 Nasal Cannula 4 116/71 (86) 05/25/17 20:00 92 18 104/67 (79) 94 Nasal Cannula 6 100/63 (75) 05/25/17 19:56 97.7 92 26 121/57 (78) 94 Nasal Cannula 6 Intake & Output 05/26/17 05/26/17 07:00 19:00 Intake Total 4730 ml Output Total 1390 ml 100 ml Balance 3340 ml -100 ml Intake Oral 580 ml IV Total 750 ml Other 3400 ml Output Urine Total 1080 ml Drainage Total 310 ml 100 ml # Bowel Movements 0 Result Diagram: 05/25/172155 Objective Remarks Abd:soft, slight tenderness, ND Brandon with clear urine today. Medications and IVs Current Medications Medications (Trade) Dose Ordered Sig/Nicole Route Start Time Stop Time Status Last Admin (Tenormin) 50 mg HS PO 05/25/17 21:00 (Lipitor) 10 mg HS PO 05/25/17 21:00 (Lotrisone Cream) 1 applic BID PRN TOPICAL 05/25/17 19:15 (Prinivil) 10 mg DAILY PO 05/26/17 09:00 (Protonix) 40 mg DAILY PO 05/26/17 09:00 05/26/17 09:02 Lactated Ringer's 1,000 ml @ 80 mls/hr [id number] IV 05/25/17 19:05 05/26/17 03:58 Cefazolin Sodium 1000 mg/Sodium Chloride 100 ml @ 200 mls/hr Q8H IV 05/26/17 02:00 05/26/17 18:29 05/26/17 09:03 (Zofran Inj) 4 mg Q6H PRN IV PUSH 05/25/17 19:15 05/26/17 10:13 (Colace) 100 mg BID PO 05/26/17 21:00 (Mag-Al Plus Susp Liq) 30 ml Q6H PRN PO 05/25/17 19:15 (Ambien) 5 mg HS PRN PO 05/25/17 21:00 (Dulcolax Supp) 10 mg DAILY PRN RECTAL 05/25/17 19:15 (Fleets Enema (Adult)) 133 ml DAILY PRN NC 05/25/17 19:15 (Narcan Inj) 0.4 mg UNSCH PRN IV PUSH 05/25/17 19:15 (Morphine 1 Mg/ ml UNEMPLOYMENT INSURANCE DIRECTOR) 30 mg UNSCH IV 05/25/17 19:15 05/25/17 20:50 UNEMPLOYMENT INSURANCE DIRECTOR Dosage Infused (Pha) 1 Q8HR .XX 05/25/17 22:00 05/26/17 06:00 (Morphine Inj) 5 mg Q4H PRN IV PUSH 05/25/17 19:15 (Ultram) 50 mg Q4H PRN PO 05/25/17 19:15 (Ultram) 100 mg Q4H PRN PO 05/25/17 19:15 (Coumadin) 5 mg DAILY@1600 PO 05/26/17 16:00 Miscellaneous Information ALL NURSING DEPARTME... UNSCH PRN .XX 05/25/17 19:57 05/26/17 19:56 Miscellaneous Information ALL NURSING DEPARTME... UNSCH PRN .XX 05/25/17 19:10 05/26/17 19:09 Assessment and Plan Assessment and Plan 72 y.o male s/p spinal surgery with h/o BPH with obstruction Restart Cardura 8mg QHS Void trial in future once he is OOB and ambulating Bucky Harp DO May 26, 2017 10:53
[2017-05-26 11:57] LABS: HEMATOCRIT 35.8 % (39.0-51.0); HEMOGLOBIN 12.1 GM/DL (13.0-17.0)
[2017-05-26 12:00] VITALS: BP 92/61; PULSE 89; RESP 18; TEMP 97.7; O2SAT 95
[2017-05-26 12:04] LABS: INTERNATIONAL NORMALIZED RATIO 1.1 RATIO; PROTHROMBIN TIME - PATIENT 11.3 SEC (9.8-11.6)
--- NOTE | 2017-05-26 12:55 | PD.CONS ---
HPI Service [facility] Consult Requested By Reason for Consult medical management Primary Care Physician No Primary Care Physician Diagnoses: History of Present Illness patient is a 72 y/o male with history of lumbar spinal stenosis, a-fib, hypertension and BPH underwent lumbar laminectomy. at the time of my evaluation he was in no acute distress.complaining of back pain and some nausea and dizziness. he denies any chest pain, abdominal pain or sob. brandon cath in place. Review of Systems Constitutional: COMPLAINS OF: Dizziness, DENIES: Fever, Weight loss, Chills, Night Sweats Eyes: DENIES: Blurred vision, Diplopia, Vision loss, Double Vision Ears, nose, mouth, throat: DENIES: Tinnitus, Vertigo, Throat pain, Epistaxis Respiratory: DENIES: Apneas, Cough, Snoring, Wheezing, Hemoptysis, Sputum production, Shortness of breath Cardiovascular: DENIES: Chest pain, Palpitations, Syncope, Dyspnea on Exertion , PND, Lower Extremity Edema, Orthopnea, Claudication Gastrointestinal: COMPLAINS OF: Nausea, DENIES: Abdominal pain, Black stools, Bloody stools, Constipation, Diarrhea, Vomiting, Difficulty Swallowing, Anorexia Genitourinary: DENIES: Urinary frequency, Urgency, Hematuria, Dysuria Musculoskeletal: COMPLAINS OF: Back pain, DENIES: Joint pain, Muscle aches, Stiffness, Joint Swelling Integumentary: DENIES: Rash Neurologic: DENIES: Abnormal gait, Headache, Localized weakness, Paresthesias, Seizures, Speech Problems, Tremor, Poor Balance Psychiatric: DENIES: Anxiety, Confusion, Mood changes, Depression, Hallucinations, Agitation, Suicidal Ideation, Homicidal Ideation, Delusions Past Family Social History Allergies: Coded Allergies: acetaminophen (Unverified Allergy, Severe, Anaphylaxis, 05/25/17) Patient denies allergy to acetaminophen. Confirms allergy to codeine after taking tylenol 3. codeine (Unverified Allergy, Severe, Anaphylaxis, 05/21/17) Past Medical History a-fib/hypertension/dyslipidemia/BPH/spinal stenosis. Past Surgical History hernia repair/cataract. Reported Medications lisinopril/atenolol/atorvastatin/coumadin. Active Ordered Medications Inpatient Medications Al Hydrox/Mg Hydrox/Simethicone (Mag-Al Plus Susp Liq) 30 ml Q6H PRN PO INDIGESTION; Start 05/25/17 at 19:15 Albumin Human 50 ml @ 50 mls/hr Q1H IV Last administered on 05/26/17at 01:17; Start 05/25/17 at 22:38; Stop 05/26/17 at 00:37; Status DC Atenolol (Tenormin) 50 mg HS PO ; Start 05/25/17 at 21:00 Atorvastatin Calcium (Lipitor) 10 mg HS PO ; Start 05/25/17 at 21:00 Betamethasone/ Clotrimazole (Lotrisone Cream) 1 applic BID PRN TOPICAL RASH; Start 05/25/17 at 19:15 Bisacodyl (Dulcolax Supp) 10 mg DAILY PRN RECTAL CONSTIPATION; Start 05/25/17 at 19:15 Cefazolin Sodium (Ancef Inj) 1,000 mg ONCE ONCE IV Last administered on at 17:48; Start 05/25/17 at 17:40; Stop 05/25/17 at 17:48; Status DC Cefazolin Sodium 1000 mg/Sodium Chloride 100 ml @ 200 mls/hr Q8H IV Last administered on 05/26/17at 09:03; Start 05/26/17 at 02:00; Stop 05/26/17 at 18:29 Cefazolin Sodium/ Dextrose 50 ml @ 100 mls/hr PAD MACHINE OPERATOR IV Last administered on 05/25/17at 13:59; Start 05/25/17 at 09:15; Stop 05/25/17 at 20:27; Status DC Chlorhexidine Gluconate (Chlorhexidine 2% Cloth) 3 pack PAD MACHINE OPERATOR PRN TOPICAL SEE LABEL COMMENTS Last administered on 05/25/17at 09:30; Start 05/25/17 at 09:00; Stop 05/25/17 at 20:27; Status DC Chlorhexidine Gluconate (Hibiclens 4% Top Soln) 1 applic ONCE TOPICAL Last administered on 05/25/17at 09:30; Start 05/25/17 at 09:15; Stop 05/25/17 at 20:27; Status DC Docusate Sodium (Colace) 100 mg BID PO ; Start 05/26/17 at 21:00 Doxazosin Mesylate (Cardura) 8 mg HS PO ; Start 05/26/17 at 21:00 Info 1 ONCE ONCE .XX ; Start 05/25/17 at 19:15; Stop 05/25/17 at 20:38; Status DC Lactated Ringer's 1,000 ml @ 80 mls/hr [id number] IV Last administered on at 03:58; Start 05/25/17 at 19:05 Lisinopril (Prinivil) 10 mg DAILY PO ; Start 05/26/17 at 09:00 Metoprolol Tartrate (Lopressor) 25 mg PAD MACHINE OPERATOR PRN PO SEE LABEL COMMENTS; Start 05/25/17 at 09:00; Stop 05/25/17 at 20:27; Status DC Miscellaneous Information ALL NURSING DEPARTME... UNSCH PRN .XX SEE LABEL COMMENTS; Start 05/25/17 at 19:10; Stop 05/26/17 at 19:09 Miscellaneous Information (Post-op Orders (for Pharmacy)) STAT ONCE XX ; Start 05/25/17 at 19:15; Stop 05/25/17 at 20:35; Status DC Morphine Sulfate (Morphine 1 Mg/ ml FOXING CLOSER) 30 mg UNSCH IV Last administered on 05/25/17at 20:50; Start 05/25/17 at 19:15 Morphine Sulfate (Morphine Inj) 5 mg Q4H PRN IV PUSH PAIN SCALE 7 TO 10; Start 05/25/17 at 19:15 Naloxone HCl (Narcan Inj) 0.4 mg UNSCH PRN IV PUSH RESPIRATORY RATE LESS THAN 10; Start 05/25/17 at 19:15 Ondansetron HCl (Zofran Inj) 4 mg Q6H PRN IV PUSH NAUSEA OR VOMITING Last administered on 05/26/17at 10:13; Start 05/25/17 at 19:15 Pantoprazole Sodium (Protonix) 40 mg DAILY PO Last administered on 05/26/17at 09: 02; Start 05/26/17 at 09:00 Patient Medication Teaching (Coumadin Booklet) 1 ONCE ONCE XX ; Start 05/25/17 at 19:15; Stop 05/25/17 at 20:30; Status DC FOXING CLOSER Dosage Infused (Pha) 1 Q8HR .XX Last administered on 05/26/17at 06:00; Start 05/25/17 at 22:00 Povidone Iodine (Betadine 5% Antisepsis Kit) 1 applic PAD MACHINE OPERATOR PRN EACH NARE SEE LABEL COMMENTS Last administered on 05/25/17at 09:30; Start 05/25/17 at 09:00; Stop 05/25/17 at 20:27; Status DC Sodium Biphosphate/ Sodium Phosphate (Fleets Enema (Adult)) 133 ml DAILY PRN [place] CONSTIPATION; Start 05/25/17 at 19:15 Sodium Chloride 500 ml @ 500 mls/hr Q1H IV Last administered on 05/25/17at 21:45 ; Start 05/25/17 at 21:45; Stop 05/25/17 at 22:55; Status DC Tramadol HCl (Ultram) 100 mg Q4H PRN PO pain 6-10; Start 05/25/17 at 19:15 Vancomycin HCl (Vancomycin Inj) 500 mg ONCE ONCE .XX ; Start 05/25/17 at 20:00; Stop 05/25/17 at 20:01; Status DC Vancomycin HCl 1000 mg/Sodium Chloride 250 ml @ 250 mls/hr PAD MACHINE OPERATOR IV Last administered on 05/25/17at 12:50; Start 05/25/17 at 09:15; Stop 05/25/17 at 20:27; Status DC Warfarin Sodium (Coumadin) 5 mg DAILY@1600 PO ; Start 05/26/17 at 16:00 Zolpidem Tartrate (Ambien) 5 mg HS PRN PO SLEEP; Start 05/25/17 at 21:00 Family History heart attack in father. Social History quit smoking six weeks ago. Physical Exam Vital Signs Vital Signs Date Time Temp Pulse Resp B/P (MAP) Pulse Ox O2 Delivery O2 Flow Rate FiO2 05/26/17 12:00 97.7 89 18 92/61 (71) 95 05/26/17 08:00 97.3 84 17 104/60 (75) 95 05/26/17 06:00 18 05/26/17 03:30 96.7 87 18 99/66 (77) 98 05/25/17 23:49 96.0 77 18 112/70 (84) 97 05/25/17 23:30 97.7 78 16 102/64 (77) 95 Nasal Cannula 2 Arterial Line 05/25/17 23:15 78 16 105/64 (78) 95 Nasal Cannula 2 Arterial Line 05/25/17 23:00 78 17 93/64 (74) 96 Nasal Cannula 2 Arterial Line 05/25/17 22:45 78 20 93/63 (73) 94 Nasal Cannula 2 Arterial Line 05/25/17 22:30 79 15 93/63 (73) 93 Nasal Cannula 4 Arterial Line 05/25/17 22:15 79 17 98/63 (75) 94 Nasal Cannula 4 Arterial Line 05/25/17 22:00 80 12 101/67 (78) 94 Nasal Cannula 4 05/25/17 21:45 80 18 99/61 (74) 95 Nasal Cannula 4 05/25/17 21:40 82 18 95/53 (67) 93 Nasal Cannula 4 05/25/17 21:35 81 15 87/60 (69) 96 Nasal Cannula 4 05/25/17 21:33 82 16 89/58 (68) 96 Nasal Cannula 4 05/25/17 21:30 81 19 87/62 (70) 92 Nasal Cannula 4 05/25/17 21:15 85 16 101/64 (76) 95 Nasal Cannula 4 05/25/17 21:00 87 17 101/63 (76) 94 Nasal Cannula 4 05/25/17 20:45 93 20 108/68 (81) 92 Nasal Cannula 4 97/62 (74) 05/25/17 20:30 96 21 114/70 (85) 92 Nasal Cannula 4 101/63 (76) 05/25/17 20:15 100 21 113/71 (85) 95 Nasal Cannula 4 116/71 (86) 05/25/17 20:00 92 18 104/67 (79) 94 Nasal Cannula 6 100/63 (75) 05/25/17 19:56 97.7 92 26 121/57 (78) 94 Nasal Cannula 6 Physical Exam GENERAL: This is a well-nourished, well-developed patient, in no apparent distress. SKIN: No rashes, ecchymoses or lesions. Cool and dry. HEAD: Atraumatic. Normocephalic. No temporal or scalp tenderness. EYES: Pupils equal round and reactive. Extraocular motions intact. No scleral icterus. No injection or drainage. ENT: Nose without bleeding, purulent drainage or septal hematoma. Throat without erythema, tonsillar hypertrophy or exudate. Uvula midline. Airway patent. NECK: Trachea midline. No JVD or lymphadenopathy. Supple, nontender, no meningeal signs. CARDIOVASCULAR: Regular rate and rhythm without murmurs, gallops, or rubs. RESPIRATORY: Clear to auscultation. Breath sounds equal bilaterally. No wheezes , rales, or rhonchi. GASTROINTESTINAL: Abdomen soft, non-tender, nondistended. No hepato-splenomegaly , or palpable masses. No guarding. MUSCULOSKELETAL: Extremities without clubbing, cyanosis, or edema. No joint tenderness, effusion, or edema noted. No calf tenderness. Negative Homans sign bilaterally. NEUROLOGICAL: Awake and alert. Cranial nerves II through XII intact. Motor and sensory grossly within normal limits. Five out of 5 muscle strength in all muscle groups. Normal speech. Laboratory Laboratory Tests Test 05/25/17 21:56 05/26/17 11:11 Hemoglobin 13.2 12.1 Hematocrit 39.2 35.8 Prothrombin Time 11.3 Prothromb Time International Ratio 1.1 Result Diagram: 05/26/17 1111 Imaging Last Impressions Lumbar Spine X-Ray 05/25/17 0000 Signed Impressions: Service Date/Time: Thursday, May 25, 2017 18:39 - CONCLUSION: Good position and alignment on this postoperative study. Tavares Alonzo MD Assessment and Plan Assessment and Plan A/P - spinal stenosis- s/p laminectomy continue with pain control and rehab efforts- management per ortho. -hypertension; continue atenolol- hold lisinopril due to low-normal BP's -a-fib- continue atenolol and coumadin- PT/INR monitoring. -BPH; brandon cath in place- Urology following. -DVT prophylaxis; SCD's/ Coumadin thank you for the consult. Discussed Condition With the patient. Ninoska Reed MD May 26, 2017 12:55
--- NOTE | 2017-05-26 13:02 | PD.ORT.PN ---
Subjective Subjective Remarks Moderate back pain. Some burning right hip. Patient denies any new radiating leg pain. He states he does feel 'very tired and very winded'. No other complaints. No new CP or SOB. Objective Vitals Vital Signs Date Time Temp Pulse Resp B/P (MAP) Pulse Ox O2 Delivery O2 Flow Rate FiO2 05/26/17 12:00 97.7 89 18 92/61 (71) 95 05/26/17 08:00 97.3 84 17 104/60 (75) 95 05/26/17 06:00 18 05/26/17 03:30 96.7 87 18 99/66 (77) 98 05/25/17 23:49 96.0 77 18 112/70 (84) 97 05/25/17 23:30 97.7 78 16 102/64 (77) 95 Nasal Cannula 2 Arterial Line 05/25/17 23:15 78 16 105/64 (78) 95 Nasal Cannula 2 Arterial Line 05/25/17 23:00 78 17 93/64 (74) 96 Nasal Cannula 2 Arterial Line 05/25/17 22:45 78 20 93/63 (73) 94 Nasal Cannula 2 Arterial Line 05/25/17 22:30 79 15 93/63 (73) 93 Nasal Cannula 4 Arterial Line 05/25/17 22:15 79 17 98/63 (75) 94 Nasal Cannula 4 Arterial Line 05/25/17 22:00 80 12 101/67 (78) 94 Nasal Cannula 4 05/25/17 21:45 80 18 99/61 (74) 95 Nasal Cannula 4 05/25/17 21:40 82 18 95/53 (67) 93 Nasal Cannula 4 05/25/17 21:35 81 15 87/60 (69) 96 Nasal Cannula 4 05/25/17 21:33 82 16 89/58 (68) 96 Nasal Cannula 4 05/25/17 21:30 81 19 87/62 (70) 92 Nasal Cannula 4 05/25/17 21:15 85 16 101/64 (76) 95 Nasal Cannula 4 05/25/17 21:00 87 17 101/63 (76) 94 Nasal Cannula 4 05/25/17 20:45 93 20 108/68 (81) 92 Nasal Cannula 4 97/62 (74) 05/25/17 20:30 96 21 114/70 (85) 92 Nasal Cannula 4 101/63 (76) 2/6/18 20:15 100 21 113/71 (85) 95 Nasal Cannula 4 116/71 (86) 05/25/17 20:00 92 18 104/67 (79) 94 Nasal Cannula 6 100/63 (75) 05/25/17 19:56 97.7 92 26 121/57 (78) 94 Nasal Cannula 6 I/O 05/25/17 05/25/17 05/25/17 05/26/17 05/26/17 05/26/17 07:00 15:00 23:00 07:00 15:00 23:00 Intake Total 3400 ml 1330 ml Output Total 500 ml 890 ml 100 ml Balance 2900 ml 440 ml -100 ml Intake Oral 580 ml IV Total 750 ml Other 3400 ml Output Urine Total 430 ml 650 ml Drainage Total 70 ml 240 ml 100 ml # Bowel Movements 0 Result Diagram: 05/26/17 1111 Other Results Laboratory Tests Test 05/26/17 11:11 Prothromb Time International Ratio 1.1 RATIO Prothrombin Time 11.3 SEC (9.8-11.6) Objective Remarks Laying in bed at bedside NAD VSS - Hypotension L/S Dressings intact, mild SS drainage, some warmth, no erythema +motor at, EHL, GS, +sens bilat Neg homans bilat Assessment & Plan Ortho Post Op Day #: 1 Problem List: Assessment and Plan pod#1 s/p Lami L23, L34, L45, L5S1; Posterior lumbar fusion L5S1. Ortho stable. Moderate pain control on PO meds. Urology evaluating - brandon cath to remain until Wed/Wed due to BPH and difficult cath. Medical following. Intermittent hypotension. Hold dressing changes unless saturated. PT - WBAT w walker. Lumbar brace when out of bed. D/C planning, likely wednesday. [facility] vs rehab. Mirna Chacko May 26, 2017 13:02
[2017-05-26] MEDS: WARFARIN SOD 5 MG TAB PO SCH (14:32)
[2017-05-26 16:00] VITALS: BP 100/64; PULSE 86; RESP 18; TEMP 96.3; O2SAT 96
[2017-05-26 20:02] VITALS: BP 107/63; PULSE 91; RESP 18; TEMP 98.3; O2SAT 92
[2017-05-26] MEDS: DOXAZOSIN MESYLATE 4 MG TAB PO SCH (21:00)
--- NOTE | 2017-05-26 21:31 | HHI.PR ---
Subjective Patient symptoms today 72 year old M s/p spine fusion surgery yesterday. Urology was consulted intraop to place brandon catheter due to large prostate and primary team was not able to place it. Coude brandon was inserted by Dr Burrell. Pt is doing well today. Did some PT today but due to BP issues could not do it for long. He is a pt of Dr Harp who also saw pt today and restarted his Cardura 8mg a day Bradnon is in place, draining well clear yellow urine. Objective Vital Signs Vital Signs Date Time Temp Pulse Resp B/P (MAP) Pulse Ox O2 Delivery O2 Flow Rate FiO2 05/26/17 16:00 96.3 86 18 100/64 (76) 96 05/26/17 14:36 18 05/26/17 12:00 97.7 89 18 92/61 (71) 95 05/26/17 08:00 97.3 84 17 104/60 (75) 95 05/26/17 06:00 18 05/26/17 03:30 96.7 87 18 99/66 (77) 98 05/25/17 23:49 96.0 77 18 112/70 (84) 97 05/25/17 23:30 97.7 78 16 102/64 (77) 95 Nasal Cannula 2 Arterial Line 05/25/17 23:15 78 16 105/64 (78) 95 Nasal Cannula 2 Arterial Line 05/25/17 23:00 78 17 93/64 (74) 96 Nasal Cannula 2 Arterial Line 05/25/17 22:45 78 20 93/63 (73) 94 Nasal Cannula 2 Arterial Line 05/25/17 22:30 79 15 93/63 (73) 93 Nasal Cannula 4 Arterial Line 05/25/17 22:15 79 17 98/63 (75) 94 Nasal Cannula 4 Arterial Line 05/25/17 22:00 80 12 101/67 (78) 94 Nasal Cannula 4 05/25/17 21:45 80 18 99/61 (74) 95 Nasal Cannula 4 05/25/17 21:40 82 18 95/53 (67) 93 Nasal Cannula 4 05/25/17 21:35 81 15 87/60 (69) 96 Nasal Cannula 4 05/25/17 21:33 82 16 89/58 (68) 96 Nasal Cannula 4 05/25/17 21:30 81 19 87/62 (70) 92 Nasal Cannula 4 Result Diagram: 05/26/17 1111 Objective Remarks Abd:soft, slight tenderness, ND Brandon in place with clear urine today. No abnormal findings at genital area Medications and IVs Current Medications Medications (Trade) Dose Ordered Sig/Nicole Route Start Time Stop Time Status Last Admin (Tenormin) 50 mg HS PO 05/25/17 21:00 (Lipitor) 10 mg HS PO 05/25/17 21:00 (Lotrisone Cream) 1 applic BID PRN TOPICAL 05/25/17 19:15 (Prinivil) 10 mg DAILY PO 05/26/17 09:00 Future Hold (Protonix) 40 mg DAILY PO 05/26/17 09:00 05/26/17 09:02 Lactated Ringer's 1,000 ml @ 80 mls/hr [id number] IV 05/25/17 19:05 05/26/17 03:58 (Zofran Inj) 4 mg Q6H PRN IV PUSH 05/25/17 19:15 05/26/17 10:13 (Colace) 100 mg BID PO 05/26/17 21:00 (Mag-Al Plus Susp Liq) 30 ml Q6H PRN PO 05/25/17 19:15 (Ambien) 5 mg HS PRN PO 05/25/17 21:00 (Dulcolax Supp) 10 mg DAILY PRN RECTAL 05/25/17 19:15 (Fleets Enema (Adult)) [address] 05/25/17 19:15 (Narcan Inj) 0.4 mg UNSCH PRN IV PUSH 05/25/17 19:15 (Morphine 1 Mg/ ml SHELVING SUPERVISOR) 30 mg UNSCH IV 05/25/17 19:15 05/25/17 20:50 SHELVING SUPERVISOR Dosage Infused (Pha) 1 Q8HR .XX 05/25/17 22:00 05/26/17 14:36 (Morphine Inj) 5 mg Q4H PRN IV PUSH 05/25/17 19:15 (Ultram) 50 mg Q4H PRN PO 05/25/17 19:15 (Ultram) 100 mg Q4H PRN PO 05/25/17 19:15 05/26/17 14:32 (Coumadin) 5 mg DAILY@1600 PO 05/26/17 16:00 05/26/17 14:32 (Cardura) 8 mg HS PO 05/26/17 21:00 Assessment and Plan Assessment and Plan - No additional recommendations by our team, follow instructions of pt's urologist Dr Harp which are listed below: 72 y.o male s/p spinal surgery with h/o BPH with obstruction Restart Cardura 8mg QHS Void trial in future once he is OOB and ambulating Laurent Campos May 26, 2017 21:31
[2017-05-26] MEDS: DOCUSATE SODIUM 100 MG CAP PO SCH (21:34)
[2017-05-26] MEDS: ATENOLOL 50 MG TAB PO SCH (21:34)
[2017-05-26] MEDS: ATORVASTATIN 10 MG TAB PO SCH (21:34)
[2017-05-26] MEDS ORDERED: WALKER WHEELS/F1 MIS (22:24)
[2017-05-26] MEDS ORDERED: COMMODE 3-IN-11 MIS (22:25)
[2017-05-27 00:15] VITALS: BP 92/54; PULSE 86; RESP 18; TEMP 97.8; O2SAT 95
[2017-05-27 04:52] VITALS: BP 120/70; PULSE 87; RESP 18; TEMP 98; O2SAT 92
[2017-05-27] MEDS: PCA - TOTAL MG MORPHINE DELIVERED PER SHIFT SCH ×3 (06:00→21:36)
[2017-05-27] MEDS: LACTATED RINGER'S 1000 ML INJ 1,000 ML IV SCH ×2 (06:23→21:35)
[2017-05-27 08:00] VITALS: BP 123/76; PULSE 76; RESP 17; TEMP 98.9; O2SAT 95
[2017-05-27 08:11] LABS: INTERNATIONAL NORMALIZED RATIO 1.1 RATIO; PROTHROMBIN TIME - PATIENT 11.1 SEC (9.8-11.6)
--- NOTE | 2017-05-27 08:40 | HHI.DS ---
Discharge Summary Admission Date May 25, 2017 at 08:38 Discharge Date: May 28, 2017 Admitting Diagnosis see below Diagnosis: (1) Lumbar spinal stenosis Diagnosis: Principal ICD Codes: M48.061 - Spinal stenosis, lumbar region without neurogenic claudication (2) Lumbar spine instability Diagnosis: Principal ICD Codes: M53.2X6 - Spinal instabilities, lumbar region (3) Difficulty in urination Diagnosis: Secondary ICD Codes: R39.19 - Difficulty in urination Status: Acute Brief History This is a 72 year old male patient CBC/BMP: 05/26/17 1111 Significant Findings Laboratory Tests Test 05/25/17 09:26 05/25/17 21:56 05/26/17 11:11 05/27/17 07:25 Hemoglobin 12.1 GM/DL (13.0-17.0) Hematocrit 35.8 % (39.0-51.0) PE at Discharge Laying in bed at bedside NAD VSS - Hypotension L/S Dressings intact, mild SS drainage, some warmth, no erythema +motor at, EHL, GS, +sens bilat Neg Mirna Dalton May 27, 2017 08:40
--- NOTE | 2017-05-27 08:40 | HHI.DCPOC ---
Discharge Care Plan Diagnosis: (1) Lumbar spinal stenosis (2) Lumbar spine instability Your Health Problems Are: Difficulty with ADL Incision/Drains Inflammation Urinary Difficulties Goals to Promote Your Health * To prevent worsening of your condition and complications * To maintain your health at the optimal level Directions to Meet Your Goals Take your medications as prescribed Follow your dietary instruction Follow activity as directed Keep your appointments as scheduled Take your immunizations and boosters as scheduled If your symptoms worsen call your PCP, if no PCP go to Urgent Care Center or Emergency Room Smoking is Dangerous to Your Health. Avoid second hand smoke Call the 24-hour hour crisis hotline for domestic abuse at Mirna Chacko May 27, 2017 08:40
--- NOTE | 2017-05-27 08:41 | HHI.FF ---
Face to Face Verification Diagnosis: (1) Lumbar spinal stenosis (2) Lumbar spine instability (3) Difficulty in urination Physical Therapy Gait training, Safety evaluation, Transfer training, bed to chair S/P Spinal Fusion: Gait training with walker, Weight bearing as tolerated, No twisting of torso, No bending Additional Instructions PT 4 days/wk for 2 weeks. WBAT. Out of bed with brace for 10 weeks. Walker as needed. Nursing RN Days per Week: 2 x Week(s): 1 Dressing Changes: Do not change dressing Additional Instructions Hold dressing changes unless saturated. Vitals assessment. I have seen patient Adam Crystal on 05/27/17. My clinical findings support the need for the requested home health care services because: Limited ability to care for self High risk of falls I certify that my clinical findings support that this patient is homebound because: Post-op weakness Unsteady gait/balance Mirna Chacko May 27, 2017 08:41
--- NOTE | 2017-05-27 08:43 | PD.ORT.PN ---
Subjective Subjective Remarks He was able to get more sleep last night. Pain is 'a little better'. Mild burning right hip. Patient denies any new radiating leg pain. No other complaints. No new CP or SOB. Objective Vitals Vital Signs Date Time Temp Pulse Resp B/P (MAP) Pulse Ox O2 Delivery O2 Flow Rate FiO2 05/27/17 06:00 17 05/27/17 04:52 98.0 87 18 120/70 (87) 92 05/27/17 00:15 97.8 86 18 92/54 (67) 95 05/26/17 22:47 Room Air 05/26/17 21:42 18 05/26/17 20:02 98.3 91 18 107/63 (78) 92 05/26/17 16:00 96.3 86 18 100/64 (76) 96 05/26/17 14:36 18 05/26/17 12:00 97.7 89 18 92/61 (71) 95 I/O 05/26/17 05/26/17 05/26/17 05/27/17 05/27/17 05/27/17 07:00 15:00 23:00 07:00 15:00 23:00 Intake Total 1330 ml 600 ml 360 ml 240 ml Output Total 890 ml 840 ml 400 ml 720 ml Balance 440 ml -240 ml -40 ml -480 ml Intake Oral 580 ml 600 ml 360 ml 240 ml IV Total 750 ml Output Urine Total 650 ml 650 ml 400 ml 550 ml Drainage Total 240 ml 190 ml 170 ml # Bowel Movements 0 0 0 0 Result Diagram: 05/26/17 1111 Other Results Laboratory Tests Test 05/26/17 11:11 05/27/17 07:25 Prothromb Time International Ratio 1.1 RATIO 1.1 RATIO Prothrombin Time 11.3 SEC (9.8-11.6) 11.1 SEC (9.8-11.6) Objective Remarks Laying in bed at bedside NAD VSS - Hypotension L/S Dressings intact, no new drainage, some warmth, no erythema +motor at, EHL, GS, +sens bilat Neg homans bilat Assessment & Plan Ortho Post Op Day #: 2 Problem List: (1) Lumbar spinal stenosis ICD Codes: M48.061 - Spinal stenosis, lumbar region without neurogenic claudication Qualifiers: Qualified Codes: M48.062 - Spinal stenosis, lumbar region with neurogenic claudication (2) Lumbar spine instability ICD Codes: M53.2X6 - Spinal instabilities, lumbar region (3) Difficulty in urination ICD Codes: R39.19 - Difficulty in urination Status: Acute Assessment and Plan pod#2 s/p Lami L23, L34, L45, L5S1; Posterior lumbar fusion L5S1. Ortho stable. Better pain control. Able to rest last night. Urology evaluating - brandon cath to remain until Wed/Wed due to BPH and difficult cath. Medical following. Intermittent hypotension. Hold dressing changes unless saturated. PT - WBAT w walker. Lumbar brace when out of bed. D/C planning, likely wednesday. HHC vs rehab. Mirna Chacko May 27, 2017 08:43
[2017-05-27] MEDS: DOCUSATE SODIUM 100 MG CAP PO SCH ×2 (09:12→21:35)
[2017-05-27] MEDS: PANTOPRAZOLE SOD 40 MG DELAYED RELEASE TAB PO SCH (09:12)
[2017-05-27] MEDS: ONDANSETRON HCL 4 MG/2 ML VIAL IV PUSH PRN ×2 (09:13→17:53)
--- NOTE | 2017-05-27 10:46 | HHI.PR ---
Subjective Patient symptoms today Pt seen and examined. c/o gas pain. Belching Objective Vital Signs Vital Signs Date Time Temp Pulse Resp B/P (MAP) Pulse Ox O2 Delivery O2 Flow Rate FiO2 05/27/17 09:16 Room Air 05/27/17 08:00 98.9 76 17 123/76 (92) 95 05/27/17 06:00 17 05/27/17 04:52 98.0 87 18 120/70 (87) 92 05/27/17 00:15 97.8 86 18 92/54 (67) 95 05/26/17 22:47 Room Air 05/26/17 21:42 18 05/26/17 20:02 98.3 91 18 107/63 (78) 92 05/26/17 16:00 96.3 86 18 100/64 (76) 96 05/26/17 14:36 18 05/26/17 12:00 97.7 89 18 92/61 (71) 95 Intake & Output 05/27/17 05/27/17 07:00 19:00 Intake Total 600 ml Output Total 1120 ml Balance -520 ml Intake Oral 600 ml Output Urine Total 950 ml Drainage Total 170 ml # Bowel Movements 0 Result Diagram: 05/26/17 1111 Objective Remarks Abd:soft, slight tenderness, ND Paiz in place with clear urine today. No abnormal findings at genital area 05/27 Abd:soft, slight tenderness, ND Paiz in place with clear urine today Medications and IVs Current Medications Medications (Trade) Dose Ordered Sig/Nicole Route Start Time Stop Time Status Last Admin (Tenormin) 50 mg HS PO 05/25/17 21:00 05/26/17 21:34 (Lipitor) 10 mg HS PO 05/25/17 21:00 05/26/17 21:34 (Lotrisone Cream) 1 applic BID PRN TOPICAL 05/25/17 19:15 (Prinivil) 10 mg DAILY PO 05/26/17 09:00 Future Hold (Protonix) 40 mg DAILY PO 05/26/17 09:00 05/27/17 09:12 Lactated Ringer's 1,000 ml @ 80 mls/hr [id number] IV 05/25/17 19:05 05/27/17 06:23 (Zofran Inj) 4 mg Q6H PRN IV PUSH 05/25/17 19:15 05/27/17 09:13 (Colace) 100 mg BID PO 05/26/17 21:00 05/27/17 09:12 (Mag-Al Plus Susp Liq) 30 ml Q6H PRN PO 05/25/17 19:15 (Ambien) 5 mg HS PRN PO 05/25/17 21:00 (Dulcolax Supp) 10 mg DAILY PRN RECTAL 05/25/17 19:15 (Fleets Enema (Adult)) 133 ml DAILY PRN [place] 05/25/17 19:15 (Narcan Inj) 0.4 mg UNSCH PRN IV PUSH 05/25/17 19:15 (Morphine 1 Mg/ ml PICKLER HELPER) 30 mg UNSCH IV 05/25/17 19:15 05/25/17 20:50 PICKLER HELPER Dosage Infused (Pha) 1 Q8HR .XX 05/25/17 22:00 05/27/17 06:00 (Morphine Inj) 5 mg Q4H PRN IV PUSH 05/25/17 19:15 (Ultram) 50 mg Q4H PRN PO 05/25/17 19:15 (Ultram) 100 mg Q4H PRN PO 05/25/17 19:15 05/26/17 14:32 (Coumadin) 5 mg DAILY@1600 PO 05/26/17 16:00 05/26/17 14:32 (Cardura) 8 mg HS PO 05/26/17 21:00 Assessment and Plan Assessment and Plan - No additional recommendations by our team, follow instructions of pt's urologist Dr Harp which are listed below: 72 y.o male s/p spinal surgery with h/o BPH with obstruction Restart Cardura 8mg QHS Void trial in future once he is OOB and ambulating 05/27 72 y.o male s/p spinal surgery with h/o BPH with obstruction Restart Cardura 8mg QHS Void trial in future once he is OOB and ambulating Bucky Harp DO May 27, 2017 10:46
[2017-05-27] MEDS ORDERED: BISACODYL 10 MG SUPP RECTAL ONE (11:30)
[2017-05-27 12:00] VITALS: BP 130/74; PULSE 74; RESP 18; TEMP 99.5; O2SAT 95
--- NOTE | 2017-05-27 13:07 | HHI.PR ---
Subjective Remarks Pt states that pain is better than yesterday. Still has nausea but no vomiting today. No CP/SOB. Has walked w PT up passed the door of his room today. Objective Vitals Vital Signs Date Time Temp Pulse Resp B/P (MAP) Pulse Ox O2 Delivery O2 Flow Rate FiO2 05/27/17 12:00 99.5 74 18 130/74 (92) 95 05/27/17 09:16 Room Air 05/27/17 08:00 98.9 76 17 123/76 (92) 95 05/27/17 06:00 17 05/27/17 04:52 98.0 87 18 120/70 (87) 92 05/27/17 00:15 97.8 86 18 92/54 (67) 95 05/26/17 22:47 Room Air 05/26/17 21:42 18 05/26/17 20:02 98.3 91 18 107/63 (78) 92 05/26/17 16:00 96.3 86 18 100/64 (76) 96 05/26/17 14:36 18 I/O 05/26/17 05/26/17 05/26/17 05/27/17 05/27/17 05/27/17 07:00 15:00 23:00 07:00 15:00 23:00 Intake Total 1330 ml 600 ml 360 ml 240 ml Output Total 890 ml 840 ml 400 ml 720 ml Balance 440 ml -240 ml -40 ml -480 ml Intake Oral 580 ml 600 ml 360 ml 240 ml IV Total 750 ml Output Urine Total 650 ml 650 ml 400 ml 550 ml Drainage Total 240 ml 190 ml 170 ml # Bowel Movements 0 0 0 0 Result Diagram: 05/26/17 1111 Imaging Last Impressions Lumbar Spine X-Ray 05/25/17 0000 Signed Impressions: Service Date/Time: Thursday, May 25, 2017 18:39 - CONCLUSION: Good position and alignment on this postoperative study. Tavares Alonzo MD Objective Remarks GENERAL: sitting up on chair. appears comfortable ENT: Airway patent. NECK: Trachea midline. CARDIOVASCULAR: Regular rate and rhythm without murmurs RESPIRATORY: Clear to auscultation. Breath sounds equal bilaterally. No wheezes GASTROINTESTINAL: Abdomen soft, non-tender, nondistended. MUSCULOSKELETAL: brace in place. NEUROLOGICAL: Awake and alert. Normal speech. A/P Assessment and Plan - spinal stenosis- s/p laminectomy continue with pain control and rehab efforts- management per ortho. -hypertension; continue atenolol- lisinopril on hold due to low-normal BP's however consider restarting in AM -a-fib- continue atenolol and coumadin- PT/INR monitoring. -BPH; brandon cath in place- Urology following. voiding trial per urology. on cardura at bedtime. -DVT prophylaxis; SCD's/ Coumadin Discharge Planning per primary team Huma Benton MD May 27, 2017 13:07
[2017-05-27] MEDS: WARFARIN SOD 5 MG TAB PO SCH (15:59)
[2017-05-27 16:00] VITALS: BP 122/78; PULSE 80; RESP 17; TEMP 98.8; O2SAT 94
[2017-05-27] MEDS: traMADol HCL 50 MG TAB PO PRN (17:53)
[2017-05-27 20:40] VITALS: BP 112/64; PULSE 85; RESP 18; TEMP 98.5; O2SAT 95
[2017-05-27] MEDS: ATORVASTATIN 10 MG TAB PO SCH (21:35)
[2017-05-27] MEDS: ATENOLOL 50 MG TAB PO SCH (21:35)
[2017-05-27] MEDS: DOXAZOSIN MESYLATE 4 MG TAB PO SCH (21:35)
[2017-05-28 00:50] VITALS: BP 95/55; PULSE 70; RESP 18; TEMP 98.7; O2SAT 93
[2017-05-28 04:50] VITALS: BP 96/68; PULSE 75; RESP 19; TEMP 96.9; O2SAT 93
[2017-05-28] MEDS: PCA - TOTAL MG MORPHINE DELIVERED PER SHIFT SCH (05:26)
[2017-05-28] MEDS ORDERED: TRAM50 PO (07:43)
[2017-05-28] MEDS ORDERED: WARF-20 PO (07:48)
[2017-05-28 08:00] VITALS: BP 121/74; PULSE 67; RESP 16; TEMP 98; O2SAT 93
--- NOTE | 2017-05-28 08:06 | PD.ORT.PN ---
Subjective Subjective Remarks He continues to improve. His pain controlled on tramadol. Paiz cath still in but urology planning on void trial today. One loose stool yesterday. Poor appetite. Patient denies any new radiating leg pain. No other complaints. No new CP or SOB. Objective Vitals Vital Signs Date Time Temp Pulse Resp B/P (MAP) Pulse Ox O2 Delivery O2 Flow Rate FiO2 05/28/17 05:26 18 05/28/17 04:50 96.9 75 19 96/68 (77) 93 05/28/17 00:50 98.7 70 18 95/55 (68) 93 05/27/17 21:35 Room Air 05/27/17 20:40 98.5 85 18 112/64 (80) 95 05/27/17 16:00 98.8 80 17 122/78 (93) 94 05/27/17 14:00 16 05/27/17 12:00 99.5 74 18 130/74 (92) 95 05/27/17 09:16 Room Air I/O 05/27/17 05/27/17 05/27/17 05/28/17 05/28/17 05/28/17 06:59 14:59 22:59 06:59 14:59 22:59 Intake Total 240 ml 580 ml 360 ml 1594 ml Output Total 720 ml 1550 ml 1940 ml 480 ml Balance -480 ml -970 ml -1580 ml 1114 ml Intake Oral 240 ml 480 ml 360 ml 240 ml IV Total 100 ml 1354 ml Output Urine Total 550 ml 1500 ml 1900 ml 450 ml Drainage Total 170 ml 50 ml 40 ml 30 ml # Bowel Movements 0 0 0 2 Result Diagram: 05/26/17 1111 Objective Remarks Laying in bed at bedside NAD VSS - Hypotension L/S Dressings intact, no new drainage, some warmth, no erythema +motor at, EHL, GS, +sens bilat Neg homans bilat Assessment & Plan Ortho Post Op Day #: 3 Problem List: (1) Lumbar spinal stenosis ICD Codes: M48.061 - Spinal stenosis, lumbar region without neurogenic claudication Qualifiers: Qualified Codes: M48.062 - Spinal stenosis, lumbar region with neurogenic claudication (2) Lumbar spine instability ICD Codes: M53.2X6 - Spinal instabilities, lumbar region (3) Difficulty in urination ICD Codes: R39.19 - Difficulty in urination Status: Acute Assessment and Plan pod#3 s/p Lami L23, L34, L45, L5S1; Posterior lumbar fusion L5S1. Ortho stable. Pain controlled. 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 Po meds only at this time. Will write for coumadin 4mg QD home for 14 days. Resume normal dosing thereafter. Urology evaluating - they are going to attempt void trial today. Medical following. Intermittent hypotension. Hold dressing changes unless saturated. PT - WBAT w walker. Lumbar brace when out of bed. D/C planning, SNF today if stable. Mirna Chacko May 28, 2017 08:06
[2017-05-28] MEDS: PANTOPRAZOLE SOD 40 MG DELAYED RELEASE TAB PO SCH (08:09)
[2017-05-28] MEDS: traMADol HCL 50 MG TAB PO PRN (08:09)
[2017-05-28] MEDS: DOCUSATE SODIUM 100 MG CAP PO SCH (08:09)
--- NOTE | 2017-05-28 08:45 | HHI.PR ---
Subjective Patient symptoms today Pt seen and examined. Paiz not out as ordered. Objective Vital Signs Vital Signs Date Time Temp Pulse Resp B/P (MAP) Pulse Ox O2 Delivery O2 Flow Rate FiO2 05/28/17 05:26 18 05/28/17 04:50 96.9 75 19 96/68 (77) 93 05/28/17 00:50 98.7 70 18 95/55 (68) 93 05/27/17 21:35 Room Air 05/27/17 20:40 98.5 85 18 112/64 (80) 95 05/27/17 16:00 98.8 80 17 122/78 (93) 94 05/27/17 14:00 16 05/27/17 12:00 99.5 74 18 130/74 (92) 95 05/27/17 09:16 Room Air Intake & Output 05/28/17 05/28/17 07:00 19:00 Intake Total 1954 ml Output Total 2400 ml Balance -446 ml Intake Oral 600 ml IV Total 1354 ml Output Urine Total 2350 ml Drainage Total 50 ml # Bowel Movements 2 Result Diagram: 05/26/17 1111 Objective Remarks Abd:soft, slight tenderness, ND Paiz in place with clear urine today. No abnormal findings at genital area 05/27 Abd:soft, slight tenderness, ND Paiz in place with clear urine today 05/28 Abd:soft,nt,nd Paiz with clear urine Medications and IVs Current Medications Medications (Trade) Dose Ordered Sig/Nicole Route Start Time Stop Time Status Last Admin (Tenormin) 50 mg HS PO 05/25/17 21:00 05/27/17 21:35 (Lipitor) 10 mg HS PO 05/25/17 21:00 05/27/17 21:35 (Lotrisone Cream) 1 applic BID PRN TOPICAL 05/25/17 19:15 (Prinivil) 10 mg DAILY PO 05/26/17 09:00 Future Hold (Protonix) 40 mg DAILY PO 05/26/17 09:00 05/28/17 08:09 Lactated Ringer's 1,000 ml @ 80 mls/hr [id number] IV 05/25/17 19:05 05/27/17 21:35 (Zofran Inj) 4 mg Q6H PRN IV PUSH 05/25/17 19:15 05/27/17 17:53 (Colace) 100 mg BID PO 05/26/17 21:00 05/28/17 08:09 (Mag-Al Plus Susp Liq) 30 ml Q6H PRN PO 05/25/17 19:15 (Ambien) 5 mg HS PRN PO 05/25/17 21:00 (Dulcolax Supp) 10 mg DAILY PRN RECTAL 05/25/17 19:15 (Fleets Enema (Adult)) 133 ml DAILY PRN [place] 05/25/17 19:15 (Narcan Inj) 0.4 mg UNSCH PRN IV PUSH 05/25/17 19:15 (Morphine Inj) 5 mg Q4H PRN IV PUSH 05/25/17 19:15 (Ultram) 50 mg Q4H PRN PO 05/25/17 19:15 05/28/17 08:09 (Ultram) 100 mg Q4H PRN PO 05/25/17 19:15 05/26/17 14:32 (Coumadin) 5 mg DAILY@1600 PO 05/26/17 16:00 05/27/17 15:59 (Cardura) 8 mg HS PO 05/26/17 21:00 05/27/17 21:35 Assessment and Plan Assessment and Plan - No additional recommendations by our team, follow instructions of pt's urologist Dr Harp which are listed below: 72 y.o male s/p spinal surgery with h/o BPH with obstruction Restart Cardura 8mg QHS Void trial in future once he is OOB and ambulating 05/27 72 y.o male s/p spinal surgery with h/o BPH with obstruction Restart Cardura 8mg QHS Void trial in future once he is OOB and ambulating 05/28 72 y.o male s/p spinal surgery with h/o BPH with obstruction Void trial today Bucky Harp DO May 28, 2017 08:45
[2017-05-28] MEDS: LACTATED RINGER'S 1000 ML INJ 1,000 ML IV SCH (10:19)
--- NOTE | 2017-05-28 10:23 | HHI.PR ---
Subjective Remarks Pt states he is feeling better today. no nausea or vomiting. hadn't eaten breakfast when I saw him. Per pt's appetite is poor. Pt states that today his coffee tasted much better. Will see how he does w breakfast. No chest pain, SOB. Pain is controlled. Objective Vitals Vital Signs Date Time Temp Pulse Resp B/P (MAP) Pulse Ox O2 Delivery O2 Flow Rate FiO2 05/28/17 08:00 98.0 67 16 121/74 (90) 93 05/28/17 05:26 18 05/28/17 04:50 96.9 75 19 96/68 (77) 93 05/28/17 00:50 98.7 70 18 95/55 (68) 93 05/27/17 21:35 Room Air 05/27/17 20:40 98.5 85 18 112/64 (80) 95 05/27/17 16:00 98.8 80 17 122/78 (93) 94 05/27/17 14:00 16 05/27/17 12:00 99.5 74 18 130/74 (92) 95 I/O 05/27/17 05/27/17 05/27/17 05/28/17 05/28/17 05/28/17 07:00 15:00 23:00 07:00 15:00 23:00 Intake Total 240 ml 580 ml 360 ml 1594 ml Output Total 720 ml 1550 ml 1940 ml 480 ml Balance -480 ml -970 ml -1580 ml 1114 ml Intake Oral 240 ml 480 ml 360 ml 240 ml IV Total 100 ml 1354 ml Output Urine Total 550 ml 1500 ml 1900 ml 450 ml Drainage Total 170 ml 50 ml 40 ml 30 ml # Bowel Movements 0 0 0 2 Result Diagram: 05/26/17 1111 Imaging Last Impressions Lumbar Spine X-Ray 05/25/17 0000 Signed Impressions: Service Date/Time: Thursday, May 25, 2017 18:39 - CONCLUSION: Good position and alignment on this postoperative study. Tavares Alonzo MD Objective Remarks GENERAL: laying in bed. appears comfortable ENT: Airway patent. NECK: Trachea midline. CARDIOVASCULAR: Regular rate and rhythm without murmurs RESPIRATORY: Clear to auscultation. Breath sounds equal bilaterally. No wheezes GASTROINTESTINAL: Abdomen soft, non-tender, nondistended. MUSCULOSKELETAL: able to move his lower extremities. NEUROLOGICAL: Awake and alert. Normal speech. A/P Assessment and Plan - spinal stenosis- s/p laminectomy continue with pain control and rehab efforts- management per ortho. -hypertension; continue atenolol- lisinopril on hold due to low-normal BP's. So far controlled. -a-fib- continue atenolol and coumadin- PT/INR monitoring. -BPH; brandon cath in place- Urology following. voiding trial which will start today per urology. on cardura at bedtime. -DVT prophylaxis; SCD's/ Coumadin Discharge Planning per primary team Huma Benton MD May 28, 2017 10:23
[2017-05-28] MEDS ORDERED: CARD4TAB2 PO (10:24)
[2017-05-28 12:00] VITALS: BP 100/59; PULSE 65; RESP 18; TEMP 96.7; O2SAT 97
[2017-05-28 16:00] VITALS: BP 138/86; PULSE 74; RESP 18; TEMP 96.7; O2SAT 92
[2017-05-28] MEDS: WARFARIN SOD 5 MG TAB PO SCH (16:45)
== END 2017-05-28 17:52 | DRG 454 ==
LOC: HSDI 08:38 → N06A 23:50
PROVIDERS: ADMIT Orthopaedic Surgery Orthopaedic Surgery of the Spine; ATTEND Orthopaedic Surgery Orthopaedic Surgery of the Spine
PROC: 0SG30J1 Fusion of Lumbosacral Joint with Synthetic Substitute, Posterior Approach, Posterior Column, Open Approach (ICD-10-PCS; 2017-05-25)
PROC: 01NB0ZZ Release Lumbar Nerve, Open Approach (ICD-10-PCS; 2017-05-25)
PROC: 0SB40ZZ Excision of Lumbosacral Disc, Open Approach (ICD-10-PCS; 2017-05-25)
PROC: 0T9B70Z Drainage of Bladder with Drainage Device, Via Natural or Artificial Opening (ICD-10-PCS; 2017-05-25)
PROC: 0SG30AJ Fusion of Lumbosacral Joint with Interbody Fusion Device, Posterior Approach, Anterior Column, Open Approach (ICD-10-PCS; principal; 2017-05-25 13:03)
DX: M54.17 Radiculopathy, lumbosacral region (principal); N13.8 Other obstructive and reflux uropathy; I95.9 Hypotension, unspecified; I48.91 Unspecified atrial fibrillation; F17.210 Nicotine dependence, cigarettes, uncomplicated; N40.1 Benign prostatic hyperplasia with lower urinary tract symptoms; M53.2X6 Spinal instabilities, lumbar region; M51.26 Other intervertebral disc displacement, lumbar region; I10 Essential (primary) hypertension; E78.5 Hyperlipidemia, unspecified; M48.062 Spinal stenosis, lumbar region with neurogenic claudication; K21.9 Gastro-esophageal reflux disease without esophagitis; Z79.01 Long term (current) use of anticoagulants
CPT/HCPCS: 72100; 76000; 85014; 85018; 85610; 86850; 86900; 86901; 94150; C1713; J0690; J1100; J1580; J2270; J2370; J2405; J3010; J3370; J7040; J7050; J7120; P9047

== ENCOUNTER 2017-07-22 10:48 | Observation (INO) | payer MEDICARE, OTHER ==
[2017-07-22] VITALS (10 sets, daily range): BP systolic 108–180; BP diastolic 67–101; PULSE 56–72; RESP 16–17; TEMP 97.7–98.3; O2SAT 96–99
[~2017-07-22 10:48] MED LIST changes: +CARD4TAB2 PO; +COMMODE 3-IN-11 MIS; -LISI10TA3 PO; +TRAM50 PO; +WALKER WHEELS/F1 MIS; +WARF-20 PO
[2017-07-22 11:53] LABS: AUTOMATED NEUTROPHIL # 5.9 TH/MM3 (1.8-7.7); BASOPHIL # 0.1 TH/MM3 (0-0.2); BASOPHIL % 0.8 % (0.0-2.0); EOSINOPHIL # 0.1 TH/MM3 (0-0.4); EOSINOPHIL % 0.9 % (0.0-4.0); HEMATOCRIT 45.5 % (39.0-51.0); HEMOGLOBIN 15.1 GM/DL (13.0-17.0); LYMPH % 25.2 % (9.0-44.0); LYMPHOCYTE # 2.3 TH/MM3 (1.0-4.8); MEAN CELL VOLUME 89.3 FL (80.0-100.0); MEAN CORPUSCULAR HEMOGLOBIN 29.7 PG (27.0-34.0); MEAN CORPUSCULAR HGB CONC 33.3 % (32.0-36.0); MEAN PLATELET VOLUME 8.2 FL (7.0-11.0); MONO % 9.2 % (0.0-8.0); MONOCYTE # 0.8 TH/MM3 (0-0.9); NEUT % 63.9 % (16.0-70.0); PLATELET COUNT 249 TH/MM3 (150-450); RED BLOOD COUNT 5.09 MIL/MM3 (4.50-5.90); RED CELL DISTRIBUTION WIDTH 14.1 % (11.6-17.2); WHITE BLOOD COUNT 9.2 TH/MM3 (4.0-11.0)
[2017-07-22 12:00] LABS: INTERNATIONAL NORMALIZED RATIO 3.5 RATIO; PROTHROMBIN TIME - PATIENT 35.6 SEC (9.8-11.6)
--- NOTE | 2017-07-22 12:07 | RADRPT ---
EXAM DATE/TIME: 07/22/2017 11:45 [facility] COMPARISON: No previous studies available for comparison. INDICATIONS : Chest pain and tightness. MEDICAL HISTORY : Hypertension. Hypercholesterolemia. A-fib SURGICAL HISTORY : None. ENCOUNTER: Initial ACUITY: 1 day PAIN SCORE: 3/10 LOCATION: Left upper chest FINDINGS: PA and lateral views of the chest demonstrate the lungs to be symmetrically aerated without evidence of mass, infiltrate or effusion. The cardiomediastinal contours are unremarkable. Osseous structure s are intact. CONCLUSION: No acute cardiopulmonary disease demonstrated. Jose Cuenca MD on July 22, 2017 at 12:05 Board Certified Radiologist. This report was verified electronically.
[2017-07-22 12:25] LABS: BICARBONATE 26.3 MEQ/L (21.0-32.0); BLOOD UREA NITROGEN 12 MG/DL (7-18); CALCIUM 9.1 MG/DL (8.5-10.1); CHLORIDE 104 MEQ/L (98-107); GLOMERULAR FILTRATION RATE 95 ML/MIN (>89); GLUCOSE,RANDOM 103 MG/DL (74-106); SODIUM (NA) 138 MEQ/L (136-145); TROPONIN I LESS THAN 0.02 NG/ML (0.02-0.05)
[2017-07-22] MEDS ORDERED: ASPIRIN 325 MG TAB PO ONE (12:30)
--- NOTE | 2017-07-22 12:31 | PD ---
HPI Chief Complaint: Cardiac Complaint Time Seen by Provider: 12:21 Travel History International Travel<30 days: No Contact w/Intl Traveler<30days: No Traveled to known affect area: No History of Present Illness HPI 72-year-old male with history of atrial fibrillation on Coumadin, hyperlipidemia , hypertension, tobacco use, presents for evaluation of chest pain. Symptoms started this morning. He describes it as a substernal chest pressure which is constant, radiates to the left side of his chest. No obvious aggravating or relieving factors. Denies nausea, vomiting, diaphoresis, shortness of breath, abdominal pain, fevers, chills. He has had a dry cough for several weeks. He has never had this type of pain before. He has no other complaints at this time. PFSH Past Medical History Hx Anticoagulant Therapy: Yes (COUMADIN) Cancer: No Cardiovascular Problems: Yes Diabetes: No Diminished Hearing: No Endocrine: No Gastrointestinal Disorders: Yes (ESOPHAGEAL DILITATIONS, REFLUX) Genitourinary: Yes (ENLARGED PROSTATE) Hepatitis: No Hiatal Hernia: No Hypertension: Yes Immune Disorder: No Medical other: Yes (Pt reports rash on his genital area.) Musculoskeletal: Yes (LUMBAR DISCOMFORT, LEGS, oa) Neurologic: Yes (WEAKNESS IN LEGS, HX FAINTING SPELLS) Psychiatric: No Reproductive: No Respiratory: No Seizures: Yes (has seizure like episode, no dx of seizures) Thyroid Disease: No Tetanus Vaccination: > 5 Years Influenza Vaccination: Yes Past Surgical History Abdominal Surgery: Yes (Bilateral inguinal surgeries) AICD: No Body Medical Devices: HARDWARE IN NECK Cardiac Surgery: No Ear Surgery: No Endocrine Surgery: No Eye Surgery: Yes (BILATERAL CATARACTS) Genitourinary Surgery: No Joint Replacement: No Neurologic Surgery: Yes (Cervical Surgery X 2 (May 2002 and November 2016)) Oral Surgery: Yes (TONSILECTOMY, esophageal dilation) Pacemaker: No Thoracic Surgery: Yes (CYST REMOVED) Other Surgery: Yes Social History Alcohol Use: No Tobacco Use: Yes (ocassionally) Substance Use: No Allergies-Medications (Allergen,Severity, Reaction): Coded Allergies: acetaminophen (Verified Allergy, Severe, Anaphylaxis, 07/22/17) Patient denies allergy to acetaminophen. Confirms allergy to codeine after taking tylenol 3. codeine (Verified Allergy, Severe, Anaphylaxis, 07/22/17) Reported Meds & Prescriptions Reported Meds & Active Scripts Active Cardura (Doxazosin Mesylate) 4 Mg Tab 8 Mg PO HS Warfarin 4 Mg Tab 4 Mg PO DAILY 14 Days Ultram (Tramadol HCl) 50 Mg Tab 50 Mg PO Q4H PRN Commode 3-in-1 (Device) 1 Mis Mis Ea .XX DIRECTED Walker with Front Wheels (Device) 1 Mis Mis Ea .XX DIRECTED Lotrisone Topical (Betamethasone/Clotrimazole) 1-0.05% Cream 1 Applic TOPICAL BID PRN Protonix (Pantoprazole Sodium) 40 Mg Tab 40 Mg PO DAILY Reported Atenolol 50 Mg Tab 50 Mg PO HS Warfarin 6 Mg Tab 6 Mg PO EVERY OTHER DAY Warfarin 5 Mg Tab 5 Mg PO EVERY OTHER DAY Atorvastatin (Atorvastatin Calcium) 10 Mg Tab 10 Mg PO HS Tylenol (Acetaminophen) 325 Mg Tab 325 Mg PO Q4H PRN Review of Systems Except as stated in HPI: all other systems reviewed are Neg Physical Exam Narrative GENERAL: Pleasant well-developed well-nourished male in no acute distress resting comfortably in hospital bed SKIN: Warm and dry. HEAD: Atraumatic. Normocephalic. EYES: Pupils equal and round. No scleral icterus. No injection or drainage. ENT: No nasal bleeding or discharge. Mucous membranes pink and moist. NECK: Trachea midline. No JVD. CARDIOVASCULAR: Regular rate and rhythm. No murmur appreciated. RESPIRATORY: No accessory muscle use. Clear to auscultation. Breath sounds equal bilaterally. GASTROINTESTINAL: Abdomen soft, non-tender, nondistended. Hepatic and splenic margins not palpable. MUSCULOSKELETAL: No obvious deformities. No clubbing. No cyanosis. No edema. NEUROLOGICAL: Awake and alert. No obvious cranial nerve deficits. Motor grossly within normal limits. Normal speech. PSYCHIATRIC: Appropriate mood and affect; insight and judgment normal. Data Data Last Documented VS Vital Signs Date Time Temp Pulse Resp B/P (MAP) Pulse Ox O2 Delivery O2 Flow Rate FiO2 07/22/17 12:50 97.8 72 17 113/67 (82) 96 Room Air Orders Orders Electrocardiogram (07/22/17 11:06) Complete Blood Count With Diff (07/22/17 11:06) Basic Metabolic Panel (Bmp) (07/22/17 11:06) Ckmb (Isoenzyme) Profile (07/22/17 11:06) Troponin I (07/22/17 11:06) Iv Access Insert/Monitor (07/22/17 11:06) Ecg Monitoring (07/22/17 11:06) Oxygen Administration (07/22/17 11:06) Oximetry (07/22/17 11:06) Prothrombin Time / Inr (Pt) (07/22/17 11:06) Act Partial Throm Time (Ptt) (07/22/17 11:06) Chest, Pa & Lat (07/22/17 ) Magnesium (Mg) (07/22/17 12:27) Bilateral Bp Monitoring (07/22/17 12:27) Aspirin (Aspirin) (07/22/17 12:30) Nitroglycerin Sl (Nitrostat Sl) (07/22/17 12:30) Admit Order (Ed Use Only) (07/22/17 12:51) Morphine Inj (Morphine Inj) (07/22/17 13:00) Pantoprazole Inj (Protonix Inj) (07/22/17 13:00) Labs Laboratory Tests Test 07/22/17 11:40 White Blood Count 9.2 TH/MM3 Red Blood Count 5.09 MIL/MM3 Hemoglobin 15.1 GM/DL Hematocrit 45.5 % Mean Corpuscular Volume 89.3 FL Mean Corpuscular Hemoglobin 29.7 PG Mean Corpuscular Hemoglobin Concent 33.3 % Red Cell Distribution Width 14.1 % Platelet Count 249 TH/MM3 Mean Platelet Volume 8.2 FL Neutrophils (%) (Auto) 63.9 % Lymphocytes (%) (Auto) 25.2 % Monocytes (%) (Auto) 9.2 % Eosinophils (%) (Auto) 0.9 % Basophils (%) (Auto) 0.8 % Neutrophils # (Auto) 5.9 TH/MM3 Lymphocytes # (Auto) 2.3 TH/MM3 Monocytes # (Auto) 0.8 TH/MM3 Eosinophils # (Auto) 0.1 TH/MM3 Basophils # (Auto) 0.1 TH/MM3 CBC Comment DIFF FINAL Differential Comment Prothrombin Time 35.6 SEC Prothromb Time International Ratio 3.5 RATIO Activated Partial Thromboplast Time 37.7 SEC Blood Urea Nitrogen 12 MG/DL Creatinine 0.80 MG/DL Random Glucose 103 MG/DL Calcium Level 9.1 MG/DL Sodium Level 138 MEQ/L Potassium Level 3.6 MEQ/L Chloride Level 104 MEQ/L Carbon Dioxide Level 26.3 MEQ/L Anion Gap 8 MEQ/L Estimat Glomerular Filtration Rate 95 ML/MIN Total Creatine Kinase 34 U/L Troponin I LESS THAN 0.02 NG/ML MDM Medical Decision Making Medical Screen Exam Complete: Yes Emergency Medical Condition: Yes Medical Record Reviewed: Yes Differential Diagnosis Acute coronary syndrome, aortic dissection, pneumothorax, pericarditis, myocarditis, pulmonary embolism, GERD Narrative Course The patient was placed on ECG monitoring pulse oximetry. A 12-lead EKG was obtained in triage revealing sinus rhythm, lab work, chest x-ray been ordered. The patient be given aspirin, sublingual nitroglycerin. Chest x-ray is unremarkable. Lab work is reassuring. At this point time, given the patient's symptoms, risk factors, he will be admitted into the chest pain center for serial cardiac enzymes and rule out purposes. Diagnosis Primary Impression: Chest pain Admitting Information Admitting Physician Requests: Koffi Ty Jul 22, 2017 12:31
[2017-07-22] MEDS: NITROGLYCERIN 0.4 MG SL 25 TABS/BTL SL SCH ×3 (12:34→12:49)
[2017-07-22] MEDS ORDERED: PANTOPRAZOLE SODIUM 40 MG VIAL IVP ONE (13:00)
[2017-07-22] MEDS ORDERED: MORPHINE SULFATE 4 MG/ML INJ IV PUSH ONE (13:00)
[2017-07-22] MEDS ORDERED: TAMS0.4C4 PO (13:10)
[2017-07-22] MEDS ORDERED: PRED10 PO (13:10)
[2017-07-22] MEDS ORDERED: LISI10TA3 PO (13:10)
[2017-07-22] MEDS ORDERED: ACETAMINOPHEN 325 MG TAB PO PRN (14:45)
[2017-07-22] MEDS ORDERED: ONDANSETRON HCL 4 MG/2 ML VIAL IV PUSH PRN (14:45)
--- NOTE | 2017-07-22 15:42 | PD.CARD.PN ---
Subjective Subjective Remarks Patient discussed with PA and records reviewed. The patient was seen personally and also examined. I am in agreement with assessment as recorded. Episode of CP is suggestive of ischemia but he also has a hx of esophageal dysfunction and dilation. PA also discussed with his member of parliament Dr. Abreu and we agree with RO and Nuclear stress testing. Objective Medications Current Medications Medications (Trade) Dose Ordered Sig/Nicole Route Start Time Stop Time Status Last Admin (Zofran Inj) 4 mg Q6H PRN IV PUSH 07/22/17 14:45 (Protonix) 40 mg DAILY PO 07/23/17 09:00 (Aspirin) 325 mg DAILY PO 07/23/17 09:00 (Tenormin) 50 mg HS PO 07/22/17 21:00 (Lipitor) 10 mg HS PO 07/22/17 21:00 (Prinivil) 10 mg DAILY PO 07/23/17 09:00 (Flomax) 0.4 mg BID PO 07/22/17 21:00 (Tylenol) 325 mg Q4H PRN PO 07/22/17 14:45 Vital Signs / I&O Vital Signs Date Time Temp Pulse Resp B/P (MAP) Pulse Ox O2 Delivery O2 Flow Rate FiO2 07/22/17 15:33 97.7 56 16 108/70 (83) 99 07/22/17 14:47 97 Nasal Cannula 2.00 07/22/17 14:17 98.1 63 17 110/71 (84) 97 Nasal Cannula 2.00 07/22/17 12:54 16 07/22/17 12:52 97 Nasal Cannula 2.00 07/22/17 12:50 97.8 72 17 113/67 (82) 96 Room Air 07/22/17 12:28 70 17 180/100 (126) 98 Room Air 166/101 (122) 07/22/17 12:23 99 Room Air 07/22/17 12:23 67 17 Room Air 07/22/17 12:23 17 99 Room Air 07/22/17 11:07 98.2 65 16 170/97 (121) 98 Physical Exam WNWD NO DISTRESS NECK WITH NO JVD OR BRUITS CHEST CLEAR WITH NO RALES WHEEZES OR RHONCHI WELL HEALED LOWER BACK SCAR CV RSR NO GRM NO EDEMA Laboratory Laboratory Tests Test 07/22/17 11:40 White Blood Count 9.2 TH/MM3 Red Blood Count 5.09 MIL/MM3 Hemoglobin 15.1 GM/DL Hematocrit 45.5 % Mean Corpuscular Volume 89.3 FL Mean Corpuscular Hemoglobin 29.7 PG Mean Corpuscular Hemoglobin Concent 33.3 % Red Cell Distribution Width 14.1 % Platelet Count 249 TH/MM3 Mean Platelet Volume 8.2 FL Neutrophils (%) (Auto) 63.9 % Lymphocytes (%) (Auto) 25.2 % Monocytes (%) (Auto) 9.2 % Eosinophils (%) (Auto) 0.9 % Basophils (%) (Auto) 0.8 % Neutrophils # (Auto) 5.9 TH/MM3 Lymphocytes # (Auto) 2.3 TH/MM3 Monocytes # (Auto) 0.8 TH/MM3 Eosinophils # (Auto) 0.1 TH/MM3 Basophils # (Auto) 0.1 TH/MM3 CBC Comment DIFF FINAL Differential Comment Prothrombin Time 35.6 SEC Prothromb Time International Ratio 3.5 RATIO Activated Partial Thromboplast Time 37.7 SEC Blood Urea Nitrogen 12 MG/DL Creatinine 0.80 MG/DL Random Glucose 103 MG/DL Calcium Level 9.1 MG/DL Sodium Level 138 MEQ/L Potassium Level 3.6 MEQ/L Chloride Level 104 MEQ/L Carbon Dioxide Level 26.3 MEQ/L Anion Gap 8 MEQ/L Estimat Glomerular Filtration Rate 95 ML/MIN Magnesium Level 2.2 MG/DL Total Creatine Kinase 34 U/L Troponin I LESS THAN 0.02 NG/ML Imaging Last 24 hours Impressions Chest X-Ray 07/22/17 0000 Signed Impressions: Service Date/Time: July 11:45 - CONCLUSION: No acute cardiopulmonary disease demonstrated. Jose Cuenca MD Assessment and Plan Assessment and Plan RO WITH STANDARD PROTOCOL AND LIZETT IF NEG Discussed Condition With PA, PATIENT AND Ralph Torres MD Jul 22, 2017 15:42
--- NOTE | 2017-07-22 15:46 | HHI.HP ---
[facility] Primary Care Physician Rayray Carrillo MD Chief Complaint Chest pain History of Present Illness This is a 72-year-old male with history of hypertension, hyperlipidemia, paroxysmal atrial fibrillation with last episode 15 years ago, recent lumbar laminectomy presents to ED with complaint of developing a chest pressure about 6 :00 this morning soon after waking up. Thought that the discomfort was gas at first. States he had a bowel movement but the symptoms did not improve. He then took some Gas-X which also did not help her symptoms. At that time the discomfort was about 3-4 out of 10. Continue to worsen and at that point he decided to seek treatment. He also claimed nausea and some mild shortness of breath. States he has not had a discomfort like this in the past. He has seen a nursing specialist. States he saw Dr. Abreu for medical clearance to have cervical fusion last year. States he had a chemical stress test last year and an echo and that they were both okay. He last saw Dr. Abreu 6 months ago. Currently offers no chest discomfort. States it resolved after about 5 or 6 hours and after being given IV morphine and sublingual nitroglycerin in the ED. The discomfort has not recurred. He does have history of some GI issues and has had esophageal dilatations in the past but states really does not feel similar to his prior GI issues. Review of Systems General: Patient denies fevers, chills, and recent travel. HEENT: Patient denies headache, sore throat, difficulty swallowing. Cardiovascular: Has the chest discomfort as mentioned above. Denies sensation of heart beating rapidly or irregularly. No syncope. Denies diaphoresis. Respiratory: Initially short of breath. Denies inspirational chest discomfort. Denies coughing wheezing or hemoptysis. GI: Mild nausea. Patient denies vomiting, diarrhea, abdominal pain, bloody stools. Musculoskeletal: Patient denies joint pain or edema. Denies calf pain or edema. Chronic neck and back pain. His back pain is getting better day by day and having lumbar laminectomy. He has been doing home health physical therapy. Neurovascular: Patient denies numbness, tingling, weakness in extremities. Denies headache. Endocrine: Denies polyuria and polydipsia. Hematologic: Denies easy bruising. Skin: Denies rash or itching. Past Family Social History Allergies: Coded Allergies: acetaminophen (Verified Allergy, Severe, Anaphylaxis, 07/22/17) Patient denies allergy to acetaminophen. Confirms allergy to codeine after taking tylenol 3. codeine (Verified Allergy, Severe, Anaphylaxis, 07/22/17) Past Medical History Hypertension, hyperlipidemia, paroxysmal atrial fibrillation with last episode approximately 15 years ago. Chronic neck and back pain with cervical fusion in 2 months of having lumbar laminectomy. Tobacco abuse. Denies diabetes and known CAD. Past Surgical History Lumbar laminectomy about 2 months ago. Cervical fusion. Cataracts. Tonsillectomy, bilateral inguinal hernia repair he has had esophageal dilatation 2. Reported Medications Reported Meds & Active Scripts Active Protonix (Pantoprazole Sodium) 40 Mg Tab 40 Mg PO DAILY Reported Prednisone 10 Mg Tab 10 Mg PO DAILY Tamsulosin (Tamsulosin HCl) 0.4 Mg Cap 0.4 Mg PO BID Lisinopril 10 Mg Tab 10 Mg PO DAILY Atenolol 50 Mg Tab 50 Mg PO HS Warfarin 5 Mg Tab 5 Mg PO DAILY Atorvastatin (Atorvastatin Calcium) 10 Mg Tab 10 Mg PO HS Tylenol (Acetaminophen) 325 Mg Tab 325 Mg PO Q4H PRN Active Ordered Medications Current Medications Medications (Trade) Dose Ordered Sig/Nicole Route Start Time Stop Time Status Last Admin (Zofran Inj) 4 mg Q6H PRN IV PUSH 07/22/17 14:45 (Protonix) 40 mg DAILY PO 07/23/17 09:00 (Aspirin) 325 mg DAILY PO 07/23/17 09:00 (Tenormin) 50 mg HS PO 07/22/17 21:00 (Lipitor) 10 mg HS PO 07/22/17 21:00 (Prinivil) 10 mg DAILY PO 07/23/17 09:00 (Flomax) 0.4 mg BID PO 07/22/17 21:00 (Tylenol) 325 mg Q4H PRN PO 07/22/17 14:45 Family History States that his father at age 62 of a myocardial infarction. Social History Smokes 1-2 cigarettes a day for the last 4 months but prior to that on average about 1 pack of cigarettes daily for 50 years. Denies alcohol or illicit drugs. He is . Physical Exam Vital Signs Vital Signs Date Time Temp Pulse Resp B/P (MAP) Pulse Ox O2 Delivery O2 Flow Rate FiO2 07/22/17 15:33 97.7 56 16 108/70 (83) 99 07/22/17 14:47 97 Nasal Cannula 2.00 07/22/17 14:17 98.1 63 17 110/71 (84) 97 Nasal Cannula 2.00 07/22/17 12:54 16 07/22/17 12:52 97 Nasal Cannula 2.00 07/22/17 12:50 97.8 72 17 113/67 (82) 96 Room Air 07/22/17 12:28 70 17 180/100 (126) 98 Room Air 166/101 (122) 07/22/17 12:23 99 Room Air 07/22/17 12:23 67 17 Room Air 07/22/17 12:23 17 99 Room Air 07/22/17 11:07 98.2 65 16 170/97 (121) 98 Physical Exam GENERAL: This is a well-nourished, well-developed patient, in no apparent distress. Patient speaks in clear complete sentences. Patient is pleasant. HEENT: Head is atraumatic and normocephalic. Neck is supple without lymphadenopathy and trachea is midline. No JVD or carotid bruits. CARDIOVASCULAR: Regular rate and rhythm without murmurs, gallops, or rubs. RESPIRATORY: Clear to auscultation. Breath sounds equal bilaterally. No wheezes , rales, or rhonchi. Chest wall is nontender. No use of accessory muscles. GASTROINTESTINAL: Abdomen is nontender, nondistended. Abdomen soft. No obvious pulsatile mass or bruit. No CVA tenderness. Strong femoral pulses bilaterally. Normal bowel sounds in all quadrants. MUSCULOSKELETAL: Patient is moving upper and lower extremities freely. No calf tenderness or edema, no Homans sign. Strong pulses in upper and lower extremities. NEUROLOGICAL: Patient is alert and oriented. Cranial nerves 2-12 are grossly intact. No focal deficits and speech is clear. SKIN: No rash and turgor is normal. Scar midline low back has no signs of erythema, drainage, or dehiscence. Laboratory Laboratory Tests Test 07/22/17 11:40 White Blood Count 9.2 Red Blood Count 5.09 Hemoglobin 15.1 Hematocrit 45.5 Mean Corpuscular Volume 89.3 Mean Corpuscular Hemoglobin 29.7 Mean Corpuscular Hemoglobin Concent 33.3 Red Cell Distribution Width 14.1 Platelet Count 249 Mean Platelet Volume 8.2 Neutrophils (%) (Auto) 63.9 Lymphocytes (%) (Auto) 25.2 Monocytes (%) (Auto) 9.2 Eosinophils (%) (Auto) 0.9 Basophils (%) (Auto) 0.8 Neutrophils # (Auto) 5.9 Lymphocytes # (Auto) 2.3 Monocytes # (Auto) 0.8 Eosinophils # (Auto) 0.1 Basophils # (Auto) 0.1 CBC Comment DIFF FINAL Differential Comment Prothrombin Time 35.6 Prothromb Time International Ratio 3.5 Activated Partial Thromboplast Time 37.7 Blood Urea Nitrogen 12 Creatinine 0.80 Random Glucose 103 Calcium Level 9.1 Sodium Level 138 Potassium Level 3.6 Chloride Level 104 Carbon Dioxide Level 26.3 Anion Gap 8 Estimat Glomerular Filtration Rate 95 Magnesium Level 2.2 Total Creatine Kinase 34 Troponin I LESS THAN 0.02 Result Diagram: 07/22/17 1140 07/22/17 1140 Imaging Last 48 hours Impressions Chest X-Ray 07/22/17 0000 Signed Impressions: Service Date/Time: July 11:45 - CONCLUSION: No acute cardiopulmonary disease demonstrated. Jose Cuenca MD Course Initial EKG is sinus rhythm rate of [address] segment depressions or elevations. Caprini VTE Risk Assessment Caprini VTE Risk Assessment: Mod/High Risk (score >= 2) Caprini Risk Assessment Model Point Value = 1 Point Value = 2 Point Value = 3 Point Value = 5 Age 41-60 Minor surgery BMI > 25 kg/m2 Swollen legs Varicose veins or History of unexplained or recurrent spontaneous Oral contraceptives or hormone replacement Sepsis (< 1 month) Serious lung disease, including pneumonia (< 1 month) Abnormal pulmonary function Acute myocardial infarction Congestive heart failure (< 1 month) History of inflammatory bowel disease Medical patient at bed rest Age 61-74 Arthroscopic surgery Major open surgery (> 45 min) Laparoscopic surgery (> 45 min) Malignancy Confined to bed (> 72 hours) Immobilizing plaster cast Central venous access Age >= 75 History of VTE Family history of VTE Factor V Leiden Prothrombin [id number] Lupus anticoagulant Anticardiolipin antibodies Elevated serum homocysteine Heparin-induced thrombocytopenia Other congenital or acquired thrombophilia Stroke (< 1 month) Elective arthroplasty Hip, pelvis, or leg fracture Acute spinal cord injury (< 1 month) Prophylaxis Regimen Total Risk Factor Score Risk Level Prophylaxis Regimen 0-1 Low Early ambulation 2 Moderate Order ONE of the following: *Sequential Compression Device (SCD) *Heparin 5000 units SQ BID 3-4 Higher Order ONE of the following medications: *Heparin 5000 units SQ TID *Enoxaparin/Lovenox 40 mg SQ daily (WT < 150 kg, CrCl > 30 mL/min) *Enoxaparin/Lovenox 30 mg SQ daily (WT < 150 kg, CrCl > 10-29 mL/min) *Enoxaparin/Lovenox 30 mg SQ BID (WT < 150 kg, CrCl > 30 mL/min) AND/OR *Sequential Compression Device (SCD) 5 or more Highest Order ONE of the following medications: *Heparin 5000 units SQ TID (Preferred with Epidurals) *Enoxaparin/Lovenox 40 mg SQ daily (WT < 150 kg, CrCl > 30 mL/min) *Enoxaparin/Lovenox 30 mg SQ daily (WT < 150 kg, CrCl > 10-29 mL/min) *Enoxaparin/Lovenox 30 mg SQ BID (WT < 150 kg, CrCl > 30 mL/min) AND *Sequential Compression Device (SCD) Assessment and Plan Assessment and Plan * Chest pain: Patient will continue to have serial cardiac enzymes and EKGs for ruling out purposes. He has been seen by Dr. Torres of cardiology in the Chest pain center. Patient to have a Lexiscan in the morning if he rules out. Also discussed this patient with Dr. Abreu. His request to be notified for any abnormality. Patient likely to be discharged home if the stress test is nonischemic with instructions to follow-up with PCP and nursing specialist. Return to ED for interval issues. * Hypertension: Resume medication. * Hyperlipidemia: Resume medication. * Paroxysmal atrial relation: His INR 3.5. Will hold warfarin this afternoon. Patient likely resume at discharge. * Tobacco abuse: Patient has been counseled on the importance of smoking cessation. Patient is stable at this time. He is agreeable to this plan. Timmy Mariee Jul 22, 2017 15:46
[2017-07-22 16:10] LABS: TROPONIN I LESS THAN 0.02 NG/ML (0.02-0.05)
[2017-07-22 19:05] LABS: TROPONIN I LESS THAN 0.02 NG/ML (0.02-0.05)
--- NOTE | 2017-07-22 20:31 | EKG ---
Date Performed: 07/22/2017 Time Performed: 11:15:46 PTAGE: 72 years EKG: Sinus rhythm POSSIBLE RIGHT VENTRICULAR CONDUCTION DELAY POSSIBLE LEFT VENTRICULAR HYPERTROPHY ABNORMAL ECG NO PREVIOUS TRACING DOCTOR: Dajuan Clemente Interpretating Date/Time 07/22/2017 20:30:57
[2017-07-22] MEDS ORDERED: ATORVASTATIN 10 MG TAB PO SCH (21:00)
[2017-07-22] MEDS ORDERED: ATENOLOL 50 MG TAB PO SCH (21:00)
[2017-07-22] MEDS: TAMSULOSIN HCL 0.4 MG CAP PO SCH (21:45)
[2017-07-23 00:31] VITALS: BP 128/88; PULSE 73; RESP 17; TEMP 98; O2SAT 94
[2017-07-23 04:51] VITALS: BP 119/75; PULSE 69; RESP 17; TEMP 98.2; O2SAT 94
[2017-07-23 07:01] VITALS: BP 118/86; PULSE 70; RESP 18; TEMP 98.3; O2SAT 96
[2017-07-23 07:30] VITALS: O2SAT 95
[2017-07-23 08:15] VITALS: PULSE 67
[2017-07-23] MEDS ORDERED: PANTOPRAZOLE SOD 40 MG DELAYED RELEASE TAB PO SCH (09:00)
[2017-07-23] MEDS ORDERED: LISINOPRIL 10 MG TAB PO SCH (09:00)
[2017-07-23] MEDS ORDERED: ASPIRIN 325 MG TAB PO SCH (09:00)
[2017-07-23] MEDS ORDERED: REGADENOSON INJ 0.4 MG/5 ML SYR ONE (10:22)
[2017-07-23] MEDS: TAMSULOSIN HCL 0.4 MG CAP PO SCH (11:26)
--- NOTE | 2017-07-23 11:43 | RADRPT ---
EXAM DATE/TIME: 07/23/2017 09:54 [facility] COMPARISON: No previous studies available for comparison. INDICATIONS : Chest pain. Angina. Atrial fibrillation. DOSE: 25.4 mCi Tc99m Myoview at stress. 8.5 mCi Tc99m Myoview at rest. 0.4 mg Lexiscan STRESS SYMPTOMS: Asymptomatic. EJECTION FRACTION: 67% MEDICAL HISTORY : Hypertension. SURGICAL HISTORY : Fusion, lumbar. ENCOUNTER: Initial ACUITY: 1 day PAIN SCALE: 2/10 LOCATION: Bilateral chest TECHNIQUE: The patient underwent pharmacologic stress with infusion of prescribed dose. Continuous ECG tracing was monitored during stress. Gated SPECT imaging was performed after stress and conventional SPECT i maging was performed at rest. The examination was performed on a SPECT/CT scanner, both attenuation and non-corrected datasets were reviewed. FINDINGS: DISTRIBUTION: The maximum perfused segment at stress is in the anterobasal wall. PERFUSION STUDY: There is a moderate size severe perfusion defect involving the apical and mid ventricular segments of the lateral wall with decreased perfusion greater than 60%. This extends into the apex as well. Th ere is no evidence of redistribution in the segments, signifying a fixed defect. The summed stress s core is 12. No reversible perfusion defect seen. GATED STUDY: There is intact wall motion and thickening without hypokinetic or dyskinetic segments. There is inta ct wall motion and wall thickening in the lateral segments. CONCLUSION: 1. Moderate sized fixed perfusion defect involving the lateral wall and apical mid ventricular segmen ts without evidence of redistribution. This suggests myocardial scar or infarction. 2. Intact wall motion with 67% ejection fraction. RISK CATEGORY: Low (<1% Annual Mortality Rate) Loyd Wright MD on July 23, 2017 at 11:35 Board Certified Radiologist. This report was verified electronically.
--- NOTE | 2017-07-23 12:14 | HHI.DCPOC ---
Discharge Care Plan Diagnosis: (1) Chest pain (2) Hypertension (3) Hyperlipidemia (4) Paroxysmal A-fib Goals to Promote Your Health * To prevent worsening of your condition and complications * To maintain your health at the optimal level Directions to Meet Your Goals Take your medications as prescribed Follow your dietary instruction Follow activity as directed Keep your appointments as scheduled Take your immunizations and boosters as scheduled If your symptoms worsen call your PCP, if no PCP go to Urgent Care Center or Emergency Room Smoking is Dangerous to Your Health. Avoid second hand smoke Call the 24-hour hour crisis hotline for domestic abuse at Timmy Mariee Jul 23, 2017 12:14
[2017-07-23 12:17] VITALS: BP 121/80; PULSE 84; RESP 18; TEMP 98.4; O2SAT 94
--- NOTE | 2017-07-23 15:11 | EKG ---
Date Performed: 07/22/2017 Time Performed: 18:00:11 PTAGE: 72 years EKG: Sinus rhythm POSSIBLE LEFT ATRIAL ENLARGEMENT BORDERLINE LEFT AXIS DEVIATION POSSIBLE RIGHT VENTRICULAR CONDUCTIO N DELAY POSSIBLE LEFT VENTRICULAR HYPERTROPHY ABNORMAL ECG No significant change PREVIOUS TRACING : 07/22/2017 15.43 DOCTOR: Ralph Torres Interpretating Date/Time 07/23/2017 15:10:34
--- NOTE | 2017-07-23 15:12 | TR ---
Date Performed: 07/23/2017 Time Performed: 10:16:38 DOCTOR: Ralph Torres DRUG LIST: CLINICAL HISTORY: CHEST PAIN REASON FOR TEST: CHEST PAIN REASON FOR ENDING: OBSERVATION: CONCLUSION: Lexiscan stress test was performed under standard four minute protocol. Radionuclide was injected one minute prior to ending the test. No electrocardiographic abormalities were present to suggest ischemia. Nuclear imaging and interpretation are pending. COMMENTS:
--- NOTE | 2017-07-23 15:12 | EKG ---
Date Performed: 07/22/2017 Time Performed: 15:43:24 PTAGE: 72 years EKG: SINUS BRADYCARDIA POSSIBLE RIGHT VENTRICULAR CONDUCTION DELAY BORDERLINE ECG No change PREVIOUS TRACING : 07/22/2017 11.15 DOCTOR: Ralph Torres Interpretating Date/Time 07/23/2017 15:10:55
== END 2017-07-23 14:27 | disposition home or self-care (01) ==
LOC: NEPC 10:48 → NEDA 12:52 → NEPFCDU 15:27
PROVIDERS: ADMIT Internal Medicine Interventional Cardiology; ATTEND Internal Medicine Interventional Cardiology
DX: R07.89 Other chest pain (principal); R06.02 Shortness of breath; R11.0 Nausea; R00.1 Bradycardia, unspecified; R94.31 Abnormal electrocardiogram [ECG] [EKG]; R05 Cough; I11.9 Hypertensive heart disease without heart failure; E78.5 Hyperlipidemia, unspecified; I48.0 Paroxysmal atrial fibrillation; M54.2 Cervicalgia; M54.9 Dorsalgia, unspecified; G89.29 Other chronic pain; K21.9 Gastro-esophageal reflux disease without esophagitis; N40.0 Benign prostatic hyperplasia without lower urinary tract symptoms; F17.200 Nicotine dependence, unspecified, uncomplicated; Z79.899 Other long term (current) drug therapy; Z79.01 Long term (current) use of anticoagulants; Z82.49 Family history of ischemic heart disease and other diseases of the circulatory system
CPT/HCPCS: 71046; 78452; 80048; 82550; 83735; 84484; 85025; 85610; 85730; 93005; 93017; 96374; 99285; A9502; C9113; G0378; J2785